=== PATIENT | male | born 1945 | race Caucasian/White ===

== ENCOUNTER 2025-07-16 07:25 | Inpatient (IN) | payer MEDICARE, SELFPAY ==
[2025-07-16] VITALS (22 sets, daily range): BP systolic 100–148; BP diastolic 53–86; PULSE 89–113; RESP 8–34; TEMP 36.3–36.9; O2SAT 94–100; BMI 39.4
--- NOTE | ~2025-07-16 | US_ITS ---
US abdomen limited Indication: Rule out cirrhosis Comparison: None Technique: Pandey-scale and color Doppler images were obtained. Findings: LIVER: Moderate increased echogenicity of the liver. The liver contours are nodular. . The liver measures 16 cm.Small amount of ascites. GALLBLADDER/BILIARY: There is cholelithiasis with minimal gallbladder wall thickening probably reactive due to the surrounding fluid. CBD 4.8 mm. [place] sign negative. PANCREAS: Unremarkable. Right Kidney: Right kidney was not imaged. Impression: 1. Cirrhotic disease of the liver with small amount of ascites. 2. Cholelithiasis. Reviewed, dictated and finalized at location P. [facility] Impression: 1. Cirrhotic disease of the liver with small amount of ascites. 2. Cholelithiasis.
--- NOTE | 2025-07-16 07:38 | ED.NAVMDI ---
HPI - Nausea/Vomiting/Diarrhea General Chief complaint: Nausea/Vomiting/Diarrhea Stated complaint: vomiting Time Seen by Provider: 07/16/25 07:31 History of Present Illness HPI Narrative: Pt had chicken for dinner last night and vomited when he got home. Pt says emesis was brown. Pt had upper and lower GI scope recently which was fine. Pt has hx of hemochromatosis and htn. Pt not vomiting now and has no pain. Related Data Home Medications ?Medication ?Instructions ?Recorded ?Confirmed ?Last Taken ?Type allopurinol 300 mg tablet 300 mg PO DAILY 07/16/25 07/16/25 07/16/25 History betamethasone dipropionate 0.05 % 1 applic topical Q12H 07/16/25 07/16/25 07/15/25 History topical cream fluticasone fur. 200 mcg-umeclid inhalation 07/16/25 07/15/25 History 62.5 mcg-vilant 25 mcg inhalat.powder (Trelegy Ellipta) fosinopril 20 mg tablet 20 mg PO DAILY 07/16/25 07/16/25 07/16/25 History Allergies Allergy/AdvReac Type Severity Reaction Status Date / Time No Known Allergies Allergy Unknown Verified 07/16/25 14:39 Review of Systems Review of Systems: All systems reviewed & are unremarkable except as noted in HPI and below PMFSH Family History Family History (Updated 07/16/25 @ 14:43 by Joana Anderson RN) Mother Unknown family medical history Cancer Sibling Pancreatic cancer Social History Social History Smoking packs per day: 1 Smoking cigarettes per day: 20.0 Years smoked: 70 Smoking pack-years: 70.00 Smoking status: Current every day smoker Tobacco type: cigarettes Alcohol intake: never Substance use: never Lack of Transportation: No Lack of Food: Never True Current Housing: I Have Housing Concerned About Future Housing: No Difficulty Paying Gas/Electric Bills: No Difficulty Paying for Meds: No Currently Unemployed: No Education: High School Diploma/GED Difficulty w/ Childcare or Family Care: No Spiritual care concerns: No Exam Const: General: healthy appearing and no acute distress Nutritional Appearance: well nourished Orientation/consciousness: patient oriented x3 Limitations: no limitations Neck: Neck: normal visual inspection Chest: Chest palpation & inspection: normal inspection of the chest Resp: Effort & Inspection: normal respiratory effort Auscultation: clear to auscultation bilaterally Cardio: Rate: regular rate Rhythm: regular rhythm GI: GI Palp: Yes Soft to palpation and No Tenderness to palpation present (GI) Auscultation: normal bowel sounds Rectal Exam: heme positive stool Skin: General skin exam: normal color Rashes: no rashes Wounds: no wounds Neuro: General: patient oriented x3, moves all extremities, no meningeal signs, no focal motor deficits and CN's II-XI intact bilaterally Cranial nerves: Yes Nystagmus not present Extrem: General: normal to inspection and no clubbing, cyanosis or edema Psych: Mental Status: mental status grossly normal Affect: normal affect Attitude: cooperative Course Vital Signs Vital signs: Vital Signs Temperature 97.6 F 07/16/25 07:31 Pulse Rate 105 H 07/16/25 07:31 Respiratory Rate 20 07/16/25 07:31 Blood Pressure 148/69 H 07/16/25 07:31 Pulse Oximetry 100 07/16/25 07:31 Oxygen Delivery Room Air 07/16/25 07:31 Temperature 97.4 F L 07/16/25 14:40 Pulse Rate 95 07/16/25 16:00 Respiratory Rate 14 07/16/25 14:40 Blood Pressure 142/69 H 07/16/25 14:40 Pulse Oximetry 100 07/16/25 14:40 Oxygen Delivery Room Air 07/16/25 07:31 MDM - Nausea/Vomiting/Diarrhea MDM Narrative Medical decision making narrative: Pt heme positive with black stool on rectal. Discussed with Dr Smith and will consult, asked to give protonix. Pt not on thinners.discussed with Dr Sanches and agrees to admit. Differential Diagnosis Differential diagnosis: Likely food poisoning, gastroenteritis, drug-induced nausea and vomiting, dehydration and other (gi bleed) Lab Data Attestation: I reviewed the patient's lab results. 07/16/25 18:12 07/16/25 07:43 Labs: Lab Results 07/16/25 07/16/25 Range/Units 07:43 10:06 WBC 10.0 (4.5-10.0) K/mm3 RBC 3.56 L (4.6-6.20) M/mm3 Hgb 9.6 L (14.0-18.0) g/dL Hct 32.7 L (42.0-52.0) % MCV 91.9 (80-100) fl MCH 27.0 (26-34) pg MCHC 29.4 L (32-36) g/dl RDW 18.2 H (11.5-14.5) % Plt Count 133 L (150-375) k/mm3 MPV 11.9 H (7.4-10.4) fl Immature Gran % (Auto) 0.9 H (0-0.5) % Neut % (Auto) 77.2 H (45.5-73.1) % Lymph % (Auto) 13.4 L (18.3-44.2) % [place] % (Auto) 6.3 (2.6-8.5) % Eos % (Auto) 1.2 (0-4.4) % Baso % (Auto) 1.0 (0.2-1.2) % Lymph # (Auto) 1.34 (0.9-3.2) K/mm3 [place] # (Auto) 0.6 (0.1-0.6) K/mm3 Eos # (Auto) 0.1 (0-0.3) K/mm3 Baso # (Auto) 0.1 (0.0-0.1) K/mm3 Abs Immat Gran (auto) 0.09 H (0.00-0.031) K/mm3 Absolute Neuts (auto) 7.7 H (1.3-6.7) K/mm3 Absolute Nucleated RBC 0.000 (0.0-0.012) K/mm3 Band Neutrophils % Not Reportable Nucleated RBC % 0.0 (0.0-0.2) % Platelet Estimate Slightly decreased (Adequate) Large Platelets Present Hypochromasia 1+ Anisocytosis Occasional Ovalocytes 1+ Schistocytes 1+ Sodium 136 L (137-145) mmol/L Potassium 5.0 (3.4-5.0) mmol/L Chloride 106 (98-107) mmol/L Carbon Dioxide 23 (22-30) mmol/L Anion Gap 7 (4-12) mmol/L BUN 42 H (9-20) mg/dL Creatinine 0.98 (0.7-1.3) mg/dL Estim Creat Clear Calc 70 ml/min Estimated GFR > 60 (59 - ) Glucose 139 H (65-110) mg/dL Calcium 8.6 (8.4-10.2) mg/dL Total Bilirubin 0.9 (0.2-1.3) mg/dL AST 44 (17-59) U/L ALT 30 (6-50) U/L Alkaline Phosphatase 146 H (38-126) U/L Total Protein 6.1 L (6.3-8.2) g/dL Albumin 3.1 L (3.5-5.1) g/dL Lipase 52 (23-300) U/L Urine Color Yellow (Yellow) Urine Appearance Clear (Clear) Urine pH 6.5 (5.0-9.0) Ur Specific [place] 1.026 (1.001-1.035) Urine Protein Negative (Negative) mg/dL Urine Glucose (UA) Negative (Negative) mg/dL Urine Ketones Trace H (Negative) mg/dL Ur Blood (Man) Negative (Negative) Urine Nitrate Negative (Negative) Urine Bilirubin Negative (Negative) Urine Urobilinogen 1.0 (<2.0) mg/dL Leukocyte Esterase Rfl Trace H (Negative) ZUNILDA/UL Urine RBC 0-2 (0-2) /hpf Urine WBC 0-5 (0-3) /hpf Ur Squamous Epith Cells None seen (Few) /hpf Urine Bacteria None seen /hpf Urine Casts 0-2 Discharge Plan Discharge Clinical Impression: GI bleed Patient Disposition: Still a Patient Condition: Stable
--- NOTE | 2025-07-16 07:42 | ECG_ITS ---
Test Date: 2025-07-16 07:47:50 Measurements Intervals [place] Rate: 101 P: 20 MD: 181 QRS: -72 QRSD: 82 T: 32 QT: 330 QTc: 428 Interpretive Statements SINUS TACHYCARDIA WITH OCCASIONAL SUPRAVENTRICULAR PREMATURE COMPLEXES POOR R-WAVE PROGRESSION CONSIDER PREVIOUS INFERIOR MS ABNORMAL ECG No previous ECG available for comparison Electronically Signed On 07-16-2025 07:50:30 [employer] by Kehinde Abbott M.D.
[2025-07-16 08:04] LABS: Hematocrit 32.7 % (42.0-52.0); Hemoglobin 9.6 g/dL (14.0-18.0); Immature Granulocyte Percent A 0.9 % (0-0.5); Lymphocytes Absolute Auto 1.34 K/mm3 (0.9-3.2); Mean Corpuscular HGB Conc 29.4 g/dl (32-36); Mean Corpuscular Hemoglobin 27.0 pg (26-34); Mean Corpuscular Volume 91.9 fl (80-100); Nucleated Red Blood Cells Absolute Auto 0.000 K/mm3 (0.0-0.012); Nucleated Red Blood Cells Perc 0.0 % (0.0-0.2); Platelet Count Result 133 k/mm3 (150-375); Red Blood Count 3.56 M/mm3 (4.6-6.20); White Blood Count 10.0 K/mm3 (4.5-10.0)
[2025-07-16] MEDS: ONDANSETRON INJ 4 MG/2 ML VIAL IV PUSH (08:18)
[2025-07-16] MEDS: SODIUM CHLORIDE 0.9% IV 500 ML 999 ML IV CONT (08:18)
[2025-07-16 08:23] LABS: Alanine Aminotransferase 30 U/L (6-50); Albumin Level 3.1 g/dL (3.5-5.1); Alkaline Phosphatase 146 U/L (38-126); Anion Gap 7 mmol/L (4-12); Aspartate Amino Transferase 44 U/L (17-59); Bilirubin,Total 0.9 mg/dL (0.2-1.3); Blood Urea Nitrogen 42 mg/dL (9-20); Calcium 8.6 mg/dL (8.4-10.2); Carbon Dioxide 23 mmol/L (22-30); Chloride 106 mmol/L (98-107); Estimated CRCL calculation 70 ml/min; Estimated Glomerular Filt Rate > 60; Glucose 139 mg/dL (65-110); Lipase 52 U/L (23-300); Potassium 5.0 mmol/L (3.4-5.0); Sodium 136 mmol/L (137-145); Total Protein 6.1 g/dL (6.3-8.2)
[2025-07-16 08:34] LABS: Anisocytosis Occasional; Hypochromasia 1+; Ovalocytes 1+; Schistocytes 1+
--- OUTSIDE RECORDS SUMMARY | 2025-07-16 09:04 | XMS_ITS | Patient Health Record ---
Author Organization UpTo Address [address] [facility] [place]. [address] [place] [id number] Care Team Providers Care Silver Buffer Name Role Phone Stu Rdz DO Primary Care Provider Ulises walker Reason For Referral No Information Plan Of Treatment No Information Insurance Providers Payer Name Payer Address Payer Phone Subscriber Number Group Number Insured Name Patient Relationship to Insured Coverage Start Date Coverage End Date Medicare E2 [address] [address] [place] [address] [phone] [id number] Miguel Jones Self - patient is the insured [facility] Choice Plus E2 [address] [address] [place] [address] [id number] Miguel Jones Spouse - patient is the spouse of the insured
[2025-07-16 10:21] LABS: Add Urine Microscopic? YES; Appearance Urine Clear (Clear); Glucose Urine UA Negative (Negative); Leukocyte Esterase Ur Trace LEU/UL (Negative); Nitrate Urine Negative (Negative); Non Pathogenic Casts 0-2; Specific Grav Ur 1.026 (1.001-1.035)
[2025-07-16] MEDS: PANTOPRAZOLE SODIUM IV 40 MG VIAL IV PUSH ×2 (10:48→19:52)
--- NOTE | 2025-07-16 11:18 | PC.NURSE ---
pt placed in recliner at this time for comfort
--- NOTE | 2025-07-16 13:16 | WPCEDHO ---
ED Hand Off Checklist All vitals saved: YES IV Site documented: YES All med administrations documented: YES Triage Note Triage Note pt ambulatory to ED for c/o N/V 07/16/25 07:31 that started last night. pt says when he vomits it looks brown. pt c/o feeling weak. pt denies feeling pain anywhere. Allergies No Known Allergies Allergy (Unknown, Verified 07/16/25 07:26) Administered/Completed Medications Discontinued Medications Sodium Chloride (Normal Saline Iv) 500 mls @ 999 mls/hr IV CONT .Q31M STA Stop: 07/16/25 08:42 Last Infusion: 07/16/25 08:49 Dose: Infused Documented By: Admin: 07/16/25 08:18 Dose: 999 mls/hr Documented By: RAIN Ondansetron HCl (Ondansetron Inj 4 Mg/2 Ml Vial) 4 mg IV PUSH ONCE STA Stop: 07/16/25 08:13 Last Admin: 07/16/25 08:18 Dose: 4 mg Documented By: RAIN Pantoprazole Sodium (Pantoprazole Sodium Iv 40 Mg Vial) 40 mg IV PUSH ONCE STA Stop: 07/16/25 10:26 Last Admin: 07/16/25 10:48 Dose: 40 mg Documented By: REYNALDO Duenas 07/16/25 11:18 Nurse Note by Zeinab Sales pt placed in recliner at this time for comfort Initialized on 07/16/25 11:18 - END OF NOTE Interventions/Assessments IV / Saline Lock, Insert Start: 07/16/25 07:30 Freq: STAT Status: Active Protocol: Document 07/16/25 07:42 KNW (Rec: 07/16/25 07:42 KNW [id number]) IV Assessment Peripheral Access Right Wrist IV Catheter Access Initiated IV Insertion Date 07/16/25 IV Insertion Time 07:42 Catheter Gauge 18 IV Insertion 1 Attempts Ultrasound Used for No Placement IV Site Assessment WNL IV Care and WNL Maintenance PA: Gastrointestinal Assessment Start: 07/16/25 07:25 Freq: Status: Active Protocol: Document 07/16/25 07:50 KNW (Rec: 07/16/25 07:51 KNW [id number]) GI Assessment Gastrointestinal Nausea,Vomiting Symptoms Description Soft,Non-Tender,Round All Quadrants Bowel Sounds Active Nausea/Vomiting Assessment Nausea Frequency Intermittent Emesis Frequency Intermittent Emesis Description Brown Last Vital Signs Temperature 97.6 F 07/16/25 07:31 Pulse Rate 101 H 07/16/25 13:01 Respiratory Rate 18 07/16/25 13:01 Pulse Oximetry 97 07/16/25 13:01 Blood Pressure 102/63 07/16/25 12:46 Blood Pressure Mean 74 07/16/25 12:46 Blood Pressure Position Sitting 07/16/25 07:31 Oxygen Delivery Room Air 07/16/25 07:31 Weight 123 kg 07/16/25 07:31 Last Result - Abnormals Only RBC 3.56 M/mm3 (4.6-6.20) L 07/16/25 07:43 Hgb 9.6 g/dL (14.0-18.0) L 07/16/25 07:43 Hct 32.7 % (42.0-52.0) L 07/16/25 07:43 MCHC 29.4 g/dl (32-36) L 07/16/25 07:43 RDW 18.2 % (11.5-14.5) H 07/16/25 07:43 Plt Count 133 k/mm3 (150-375) L 07/16/25 07:43 MPV 11.9 fl (7.4-10.4) H 07/16/25 07:43 Immature Gran % (Auto) 0.9 % (0-0.5) H 07/16/25 07:43 Neut % (Auto) 77.2 % (45.5-73.1) H 07/16/25 07:43 Lymph % (Auto) 13.4 % (18.3-44.2) L 07/16/25 07:43 Abs Immat Gran (auto) 0.09 K/mm3 (0.00-0.031) H 07/16/25 07:43 Absolute Neuts (auto) 7.7 K/mm3 (1.3-6.7) H 07/16/25 07:43 Sodium 136 mmol/L (137-145) L 07/16/25 07:43 BUN 42 mg/dL (9-20) H 07/16/25 07:43 Glucose 139 mg/dL (65-110) H 07/16/25 07:43 Alkaline Phosphatase 146 U/L (38-126) H 07/16/25 07:43 Total Protein 6.1 g/dL (6.3-8.2) L 07/16/25 07:43 Albumin 3.1 g/dL (3.5-5.1) L 07/16/25 07:43 Urine Ketones Trace mg/dL (Negative) H 07/16/25 10:06 Leukocyte Esterase Rfl Trace ZUNILDA/UL (Negative) H 07/16/25 10:06 Most Recent Suicide Severity Rating Suicide Severity Rating NO RISK INDICATED 07/16/25 07:31
[2025-07-16 13:36] LABS: Hematocrit 30.7 % (42.0-52.0); Hemoglobin 9.1 g/dL (14.0-18.0)
--- NOTE | 2025-07-16 14:29 | ADMGEN ---
This patient, Miguel Jones, was admitted to 3 Med Surg Room 321-01. Patient/family oriented to hospital policies and general routines including ID bracelet, bed and alarms, visiting hours, pain management, procedures, bathroom and other care routines, personal items, smoking policy, room service/diet, and visiting hours. Information on how to activate the Rapid Response Team has been discussed. Patient/Family are encouraged to report perceived risks to care and to ask questions if they do not understand what they are told or what they should do.
--- NOTE | 2025-07-16 16:10 | P.HP_ITS ---
H&P: HPI History of Present Illness Date/Time: 07/16/25 16:10 Chief Complaint: Hematemesis Narrative: Patient is a 80-year-old male with a past medical history of hemochromatosis and COPD who presented to the ED due to episodes of hematemesis. Patient has a history of hemochromatosis and follows up with the oncologist at [facility]. Patient undergoes a therapeutic phlebotomy, but his last blood removal was probably around 1 year ago. Patient follows up with events director/oncologist and GI and PCP, usually in April, before going on the fishing trip in May and June. During his last visit with the oncologist, the patient underwent an ultrasound of the liver and was told everything looked fine. Patient also saw Dr. [facility], reports undergoing endoscopy and colonoscopy with no significant findings other than polyps. When questioned about polyps, he reported having polyps in his throat, and, when qs in more detail about the polyps, whether the polyps were in the throat, esophagus, or intestine, he reported having polyps in the esophagus. The patient has never seen an ENT or requested by GI to see one. Unable to verify whether its polyps or esophageal varices? Yesterday, the patient attended his granddaughter's game and returned home feeling unwell. Around 2:00 a.m., the patient threw up blood clots like material and went to bed again, but eventually he again threw up around 5:00 a.m., brown material. Lately, the patient has dark bowel movements as well. Patient is currently started on pantoprazole 40 mg IV b.i.d. and has been consulted by Gastroenterology. Patient is a chronic smoker and social drinker. Denies daily alcohol consumption. Review of Systems Review of Systems: All systems reviewed & are unremarkable except as noted in HPI and below [facility] Family History Family History (Updated 07/16/25 @ 14:43 by Joana Anderson RN) Mother Unknown family medical history Cancer Sibling Pancreatic cancer Social History Social History Smoking packs per day: 1 Smoking cigarettes per day: 20.0 Years smoked: 70 Smoking pack-years: 70.00 Smoking status: Current every day smoker Tobacco type: cigarettes Alcohol intake: never Substance use: never Lack of Transportation: No Lack of Food: Never True Current Housing: I Have Housing Concerned About Future Housing: No Difficulty Paying Gas/Electric Bills: No Difficulty Paying for Meds: No Currently Unemployed: No Education: High School Diploma/GED Difficulty w/ Childcare or Family Care: No Spiritual care concerns: No Meds Home Medications and Allergies Home Medications ?Medication ?Instructions ?Recorded ?Confirmed ?Type allopurinol 300 mg tablet 300 mg PO DAILY 07/16/25 History betamethasone dipropionate 0.05 % 1 applic topical Q12 H 07/16/25 07/16/25 History topical cream fluticasone fur. 200 mcg-umeclid inhalation 07/16/25 History 62.5 mcg-vilant 25 mcg inhalat.powder (Trelegy Ellipta) fosinopril 20 mg tablet 20 mg PO DAILY 07/16/2506/28 History Allergies Allergy/AdvReac Type Severity Reaction Status Date / Time No Known Allergies Allergy Unknown Verified 07/16/25 14:39 Vital Signs Vital Signs - 24 hr 07/16/25 07:31 07/16/25 07:46 07/16/25 08:01 Temperature 97.6 F Pulse Rate 105 H 98 97 Respiratory Rate 20 18 17 Blood Pressure 148/69 H 125/62 107/71 Pulse Oximetry 100 99 99 Oxygen Delivery Room Air 07/16/25 08:16 07/16/25 10:45 07/16/25 11:00 Temperature Pulse Rate 106 H 112 H 107 H Respiratory Rate 22 H 34 H 20 Blood Pressure 117/56 L Pulse Oximetry 99 Oxygen Delivery 07/16/25 11:04 07/16/25 11:18 07/16/25 11:30 Temperature Pulse Rate 110 H 105 H 113 H Respiratory Rate 25 H 8 L 19 Blood Pressure 104/86 Pulse Oximetry 99 99 Oxygen Delivery 07/16/25 11:31 07/16/25 11:45 07/16/25 11:46 Temperature Pulse Rate 100 103 H 102 H Respiratory Rate 19 19 16 Blood Pressure 121/62 103/53 L Pulse Oximetry 99 99 98 Oxygen Delivery 07/16/25 12:00 07/16/25 12:01 07/16/25 12:35 Temperature Pulse Rate 105 H 103 H 109 H Respiratory Rate 20 19 22 H Blood Pressure 100/58 L Pulse Oximetry Oxygen Delivery 07/16/25 12:45 07/16/25 12:46 07/16/25 13:01 Temperature Pulse Rate 105 H 101 H 101 H Respiratory Rate 19 20 18 Blood Pressure 102/63 Pulse Oximetry 98 97 97 Oxygen Delivery 07/16/25 14:40 Temperature 97.4 F L Pulse Rate 101 H Respiratory Rate 14 Blood Pressure 142/69 H Pulse Oximetry 100 Oxygen Delivery Exam Const: General: healthy appearing, no acute distress and well nourished Nutritional Appearance: well nourished Orientation/consciousness: patient oriented x3 Limitations: no limitations Neck: Neck: normal visual inspection and no meningeal signs Chest: Chest palpation & inspection: normal inspection of the chest Resp: Effort & Inspection: normal respiratory effort Auscultation: clear to auscultation bilaterally Cardio: Rate: regular rate Rhythm: regular rhythm GI: Auscultation: normal bowel sounds Rectal Exam: heme positive stool Skin: General skin exam: normal color Rashes: no rashes Wounds: no wounds Neuro: General: patient oriented x3, moves all extremities, no meningeal signs, no focal motor deficits and CN's II-XI intact bilaterally Cranial nerves: Yes Nystagmus not present Extrem: General: normal to inspection and no clubbing, cyanosis or edema Psych: Mental Status: mental status grossly normal Affect: normal affect Attitude: cooperative H&P: Results Labs Labs: Short CBC 07/16/25 07/16/25 Range/Units 07:43 13:29 WBC 10.0 (4.5-10.0) K/mm3 Hgb 9.6 L 9.1 L (14.0-18.0) g/dL Hct 32.7 L 30.7 L (42.0-52.0) % Plt Count 133 L (150-375) k/mm3 BMP 07/16/25 07:43 Sodium 136 L Potassium 5.0 Chloride 106 Carbon Dioxide 23 BUN 42 H Creatinine 0.98 Glucose 139 H Calcium 8.6 Liver Function 07/16/25 Range/Units 07:43 Total Bilirubin 0.9 (0.2-1.3) mg/dL AST 44 (17-59) U/L ALT 30 (6-50) U/L Alkaline Phosphatase 146 H (38-126) U/L Albumin 3.1 L (3.5-5.1) g/dL Urine 07/16/25 Range/Units 10:06 Urine Color Yellow (Yellow) Urine Appearance Clear (Clear) Urine pH 6.5 (5.0-9.0) Ur Specific [place] 1.026 (1.001-1.035) Urine Protein Negative (Negative) mg/dL Urine Glucose (UA) Negative (Negative) mg/dL Assessment and Plan Assessment and plan (1) GI bleed: Code(s): K92.2 - Gastrointestinal hemorrhage, unspecified Status: Acute Assessment and Plan: Hematemesis As per patient recent endoscopy and colonoscopy Reports polyps in esophagus (esophageal varices?) Possible esophageal varices from chronic liver disease (hemochromatosis) 2 episodes of hematemesis Monitor H&H Monitor INR and platelets Protonix IV b.i.d. Prophylactic ceftriaxone 1 g Octreotide bolus follows with drip GI on board Transfuse if hemoglobin less than 7 (2) Hemochromatosis: Code(s): E83.119 - Hemochromatosis, unspecified Status: Acute Assessment and Plan: S/P Therapeutic phlebotomy Follows up with the Hematology/Oncology at [facility] Ultrasound liver to rule out cirrhosis (3) COPD (chronic obstructive pulmonary disease): Code(s): J44.9 - Chronic obstructive pulmonary disease, unspecified Status: Acute Assessment and Plan: Chronic smoker Continue home medication Plan Code full code DVT prophylaxis: SCD Hospitalist [facility] Advance Care Plan I have confirmed that the patient's Advanced Care Plan is present, code status i s documented, or surrogate decision maker is listed in patient medical record.: Yes Medication Reconciliation I have utilized all available resources to obtain, update and review the patients current medications (includes all prescriptions, OTC, herbals, cannabis, and nutritional supplements).: Yes
[2025-07-16] MEDS: OCTREOTIDE ACETATE 50 MCG/ML VIAL IV PUSH (17:16)
[2025-07-16] MEDS: cefTRIAXone 1 GM in SODIUM CHLORIDE 0.9% IV 50 ML 100 ML IVPB (17:27)
[2025-07-16] MEDS: OCTREOTIDE ACETATE 500 MCG in SODIUM CHLORIDE 0.9% IV 99 ML 10 MCG IV CONT (17:39)
[2025-07-16 18:31] LABS: Hematocrit 28.7 % (42.0-52.0); Hemoglobin 8.5 g/dL (14.0-18.0)
[2025-07-16 18:46] LABS: INR 1.2; Prothrombin Time 15.4 Seconds (11.1-14.7)
--- NOTE | 2025-07-16 20:29 | P.CONGI_ITS ---
Assessment and Plan Assessment and plan (1) Cirrhosis: Code(s): K74.60 - Unspecified cirrhosis of liver Status: Acute Assessment and Plan: Patient with new onset upper GI bleeding, likely variceal although differential diagnosis should include peptic ulcer disease, erosive gastritis, Thu Gonzalez tear or erosive esophagitis. Will start treatment with Octreotide infusion, Prophylaxis with ceftriaxone and IV Pantoprazole. Will perform EGD tomorrow and if varices are present will perform endoscopic variceal ligation, and will discontinue Pantoprazole. 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 He is followed at [facility], where he undergoes biannual ultrasounds and regular checkups. He presented for the first time yesterday after two episodes of christine hematemesis, associated with mild weakness and instability. He was found to be hemodynamically stable upon arrival to the Emergency Room. His history is notable for recent EGD demonstrating esophageal varices, though banding was only discussed and never performed. Admission Labs: Hb 9.6, Hct 32.7, Plt 133, INR 1.2, Na 136, Creatinine 0.98, BUN 42, AST 44, ALT 30, Albumin 3.1. His MELD 3.0 score is 20. Review of Systems 2 Review of Systems: All systems reviewed & are unremarkable except as noted in HPI and below PMFSH Family History Family History (Updated 07/16/25 @ 14:43 by Joana Anderson RN) Mother Unknown family medical history Cancer Sibling Pancreatic cancer Social History Social History Smoking packs per day: 1 Smoking cigarettes per day: 20.0 Years smoked: 70 Smoking pack-years: 70.00 Smoking status: Current every day smoker Tobacco type: cigarettes Alcohol intake: never Substance use: never Lack of Transportation: No Lack of Food: Never True Current Housing: I Have Housing Concerned About Future Housing: No Difficulty Paying Gas/Electric Bills: No Difficulty Paying for Meds: No Currently Unemployed: No Education: High School Diploma/GED Difficulty w/ Childcare or Family Care: No Spiritual care concerns: No Meds Home Medications and Allergies Home Medications ?Medication ?Instructions ?Recorded ?Confirmed ?Type allopurinol 300 mg tablet 300 mg PO DAILY 07/16/25 History betamethasone dipropionate 0.05 % 1 applic topical Q12 H 07/16/25 07/16/25 History topical cream fluticasone fur. 200 mcg-umeclid inhalation 07/16/25 History 62.5 mcg-vilant 25 mcg inhalat.powder (Trelegy Ellipta) fosinopril 20 mg tablet 20 mg PO DAILY 07/16/2506/28 History Allergies Allergy/AdvReac Type Severity Reaction Status Date / Time No Known Allergies Allergy Unknown Verified 07/16/25 14:39 Vital Signs Vital Signs - 24 hr 07/16/25 07:31 07/16/25 07:46 07/16/25 08:01 Temperature 97.6 F Pulse Rate 105 H 98 97 Respiratory Rate 20 18 17 Blood Pressure 148/69 H 125/62 107/71 Pulse Oximetry 100 99 99 Oxygen Delivery Room Air 07/16/25 08:16 07/16/25 10:45 07/16/25 11:00 Temperature Pulse Rate 106 H 112 H 107 H Respiratory Rate 22 H 34 H 20 Blood Pressure 117/56 L Pulse Oximetry 99 Oxygen Delivery 07/16/25 11:04 07/16/25 11:18 07/16/25 11:30 Temperature Pulse Rate 110 H 105 H 113 H Respiratory Rate 25 H 8 L 19 Blood Pressure 104/86 Pulse Oximetry 99 99 Oxygen Delivery 07/16/25 11:31 07/16/25 11:45 07/16/25 11:46 Temperature Pulse Rate 100 103 H 102 H Respiratory Rate 19 19 16 Blood Pressure 121/62 103/53 L Pulse Oximetry 99 99 98 Oxygen Delivery 07/16/25 12:00 07/16/25 12:01 07/16/25 12:35 Temperature Pulse Rate 105 H 103 H 109 H Respiratory Rate 20 19 22 H Blood Pressure 100/58 L Pulse Oximetry Oxygen Delivery 07/16/25 12:45 07/16/25 12:46 07/16/25 13:01 Temperature Pulse Rate 105 H 101 H 101 H Respiratory Rate 19 20 18 Blood Pressure 102/63 Pulse Oximetry 98 97 97 Oxygen Delivery 07/16/25 14:40 07/16/25 16:00 Temperature 97.4 F L Pulse Rate 101 H 95 Respiratory Rate 14 Blood Pressure 142/69 H Pulse Oximetry 100 Oxygen Delivery Exam 2 Const: General: healthy appearing and no acute distress Nutritional Appearance: well nourished Orientation/consciousness: patient oriented x3 Limitations: no limitations Neck: Neck: normal visual inspection Chest: Chest palpation & inspection: normal inspection of the chest Resp: Effort & Inspection: normal respiratory effort Auscultation: clear to auscultation bilaterally Cardio: Rate: regular rate Rhythm: regular rhythm GI: GI Palp: Yes Soft to palpation and No Tenderness to palpation present (GI) Auscultation: normal bowel sounds Rectal Exam: heme positive stool Skin: General skin exam: normal color Rashes: no rashes Wounds: no wounds Neuro: General: patient oriented x3, moves all extremities, no meningeal signs, no focal motor deficits and CN's II-XI intact bilaterally Cranial nerves: Yes Nystagmus not present Extrem: General: normal to inspection and no clubbing, cyanosis or edema Psych: Mental Status: mental status grossly normal Affect: normal affect Attitude: cooperative Results Labs 07/16/25 18:12 07/16/25 07:43 Labs: Short CBC 07/16/25 07/16/25 07/16/25 Range/Units 07:43 13:29 18:12 WBC 10.0 (4.5-10.0) K/mm3 Hgb 9.6 L 9.1 L 8.5 L (14.0-18.0) g/dL Hct 32.7 L 30.7 L 28.7 L (42.0-52.0) % Plt Count 133 L (150-375) k/mm3 BMP 07/16/25 07:43 Sodium 136 L Potassium 5.0 Chloride 106 Carbon Dioxide 23 BUN 42 H Creatinine 0.98 Glucose 139 H Calcium 8.6 Liver Function 07/16/25 Range/Units 07:43 Total Bilirubin 0.9 (0.2-1.3) mg/dL AST 44 (17-59) U/L ALT 30 (6-50) U/L Alkaline Phosphatase 146 H (38-126) U/L Albumin 3.1 L (3.5-5.1) g/dL Urine 07/16/25 Range/Units 10:06 Urine Color Yellow (Yellow) Urine Appearance Clear (Clear) Urine pH 6.5 (5.0-9.0) Ur Specific [place] 1.026 (1.001-1.035) Urine Protein Negative (Negative) mg/dL Urine Glucose (UA) Negative (Negative) mg/dL
[2025-07-17] VITALS (12 sets, daily range): BP systolic 101–134; BP diastolic 44–72; PULSE 65–109; RESP 16–23; TEMP 36.4–36.8; O2SAT 96–100
[2025-07-17 00:40] LABS: Hematocrit 29.1 % (42.0-52.0); Hemoglobin 8.8 g/dL (14.0-18.0)
[2025-07-17] MEDS: OCTREOTIDE ACETATE 500 MCG in SODIUM CHLORIDE 0.9% IV 99 ML 10 MCG IV CONT ×3 (03:32→18:00)
[2025-07-17 06:21] LABS: Hematocrit 25.6 % (42.0-52.0); Hemoglobin 7.7 g/dL (14.0-18.0)
[2025-07-17 07:44] LABS: Mean Corpuscular HGB Conc 30.0 g/dl (32-36); Mean Corpuscular Hemoglobin 27.5 pg (26-34); Mean Corpuscular Volume 91.8 fl (80-100); Platelet Count Result 118 k/mm3 (150-375); Red Blood Count 2.80 M/mm3 (4.6-6.20); White Blood Count 7.9 K/mm3 (4.5-10.0)
[2025-07-17 08:19] LABS: Alanine Aminotransferase 27 U/L (6-50); Albumin Level 2.7 g/dL (3.5-5.1); Alkaline Phosphatase 130 U/L (38-126); Anion Gap 3 mmol/L (4-12); Aspartate Amino Transferase 37 U/L (17-59); Bilirubin,Total 0.8 mg/dL (0.2-1.3); Blood Urea Nitrogen 44 mg/dL (9-20); Calcium 8.1 mg/dL (8.4-10.2); Carbon Dioxide 24 mmol/L (22-30); Chloride 109 mmol/L (98-107); Estimated CRCL calculation 66 ml/min; Estimated Glomerular Filt Rate > 60; Glucose 141 mg/dL (65-110); Potassium 4.8 mmol/L (3.4-5.0); Sodium 136 mmol/L (137-145); Total Protein 5.5 g/dL (6.3-8.2)
[2025-07-17 08:39] LABS: Immature Reticulocyte Fraction 34.2 % (3.0-15.9); Reticulocyte Hemoglobin Conten 28.9 pg (28.2-36.6); Reticulocytes Absolute 0.12 10^6/uL (0.02-0.10)
[2025-07-17] MEDS: PANTOPRAZOLE SODIUM IV 40 MG VIAL IV PUSH (08:40)
[2025-07-17] MEDS: SODIUM CHLORIDE 0.9% IV 1,000 ML 75 ML IV CONT (08:44)
[2025-07-17 09:10] LABS: Bilirubin,Total 1.0 mg/dL (0.2-1.3)
[2025-07-17 09:11] LABS: Iron 36 ug/dL (49-181)
[2025-07-17 09:18] LABS: Transferrin 185 mg/dL (206-381)
[2025-07-17 09:24] LABS: Percent Iron Saturation 14 % (20-50)
[2025-07-17 09:46] LABS: Ferritin 21.90 ng/mL (11.1-264)
[2025-07-17 10:16] LABS: Vitamin B12 476.0 pg/mL (239-931)
[2025-07-17] MEDS: LACTATED RINGERS 1,000 ML 150 ML IV CONT (13:29)
--- NOTE | 2025-07-17 14:26 | WPDANESEPPF ---
Anes - Initial Pre Proc Eval Procedure: Operation Date: 07/17/25 14:45 Proposed Procedures p Esophagogastroduodenoscopy - Omar Smith MD Date/Time: 07/17/25 14:26 Surgeon: Thiago Sanches MD Pre Op Diagnosis: GI Bleed Patient Data Age: 80 Gender: M Height: 1.75 m Weight: 121 kg Last Vital Signs Temp 36.4 C 07/17/25 13:27 Pulse 85 07/17/25 13:27 Resp 22 H 07/17/25 13:27 BP 123/57 L 07/17/25 13:27 Pulse Ox 99 07/17/25 13:27 O2 Del Method Room Air 07/17/25 13:27 Allergies Allergy/AdvReac Type Severity Reaction Status Date / Time No Known Allergies Allergy Unknown Verified 07/17/25 13:25 Home Medications ?Medication ?Instructions ?Recorded ?Confirmed ?Type allopurinol 300 mg tablet 300 mg PO DAILY 07/16/25 07/16/25 History betamethasone dipropionate 0.05 % 1 applic topical Q12H 07/16/25 07/16/25 History topical cream fluticasone fur. 200 mcg-umeclid inhalation 07/16/25 History 62.5 mcg-vilant 25 mcg inhalat.powder (Trelegy Ellipta) fosinopril 20 mg tablet 20 mg PO DAILY 07/16/25 07/16/25 History Laboratory Tests 07/16/25 07/17/25 07/17/25 18:12 00:19 05:55 WBC 7.9 K/mm3 (4.5-10.0) RBC 2.80 L M/mm3 (4.6-6.20) Hgb 8.5 L g/dL 8.8 L g/dL 7.7 L g/dL (14.0-18.0) (14.0-18.0) (14.0-18.0) Hct 28.7 L % 29.1 L % 25.6 L % (42.0-52.0) (42.0-52.0) (42.0-52.0) MCV 91.8 fl (80-100) MCH 27.5 pg (26-34) MCHC 30.0 L g/dl (32-36) RDW 18.6 H % (11.5-14.5) Plt Count 118 L k/mm3 (150-375) MPV 12.9 H fl (7.4-10.4) Absolute Retic 0.12 H 10^6/uL (0.02-0.10) Percent Retic 4.42 H % (0.7-4.3) Immature Retic Fraction 34.2 H % (3.0-15.9) Retic Hgb Content 28.9 pg (28.2-36.6) Haptoglobin PT 15.4 H Seconds (11.1-14.7) INR 1.2 Sodium 136 L mmol/L (137-145) Potassium 4.8 mmol/L (3.4-5.0) Chloride 109 H mmol/L (98-107) Carbon Dioxide 24 mmol/L (22-30) Anion Gap 3 L mmol/L (4-12) BUN 44 H mg/dL (9-20) Creatinine 1.03 mg/dL (0.7-1.3) Estim Creat Clear Calc 66 ml/min Estimated GFR > 60 (59 - ) Glucose 141 H mg/dL (65-110) POC Capillary Glucose Calcium 8.1 L mg/dL (8.4-10.2) Iron TIBC % Saturation Transferrin Ferritin Total Bilirubin 0.8 mg/dL (0.2-1.3) Direct Bilirubin AST 37 U/L (17-59) ALT 27 U/L (6-50) Alkaline Phosphatase 130 H U/L (38-126) Lactate Dehydrogenase Total Protein 5.5 L g/dL (6.3-8.2) Albumin 2.7 L g/dL (3.5-5.1) Vitamin B12 Folate 07/17/25 07/17/25 07/17/25 08:39 08:40 11:41 WBC RBC Hgb Hct MCV MCH MCHC RDW Plt Count MPV Absolute Retic Percent Retic Immature Retic Fraction Retic Hgb Content Haptoglobin Pending PT INR Sodium Potassium Chloride Carbon Dioxide Anion Gap BUN Creatinine Estim Creat Clear Calc Estimated GFR Glucose POC Capillary Glucose 137 H mg/dl (65-105) Calcium Iron 36 L ug/dL (49-181) TIBC 262 L ug/dL (265-497) % Saturation 14 L % (20-50) Transferrin 185 L mg/dL (206-381) Ferritin 21.90 ng/mL (11.1-264) Total Bilirubin 1.0 mg/dL (0.2-1.3) Direct Bilirubin 0.0 mg/dL (0-0.3) AST ALT Alkaline Phosphatase Lactate Dehydrogenase 206 U/L (120-246) Total Protein Albumin Vitamin B12 476.0 pg/mL (239-931) Folate 8.1 ng/mL (2.76->20) Patient hx anesthesia problems: none Family hx anesthesia problems: none Results Review: All pre-operative results and documents have been reviewed as part of the pre-operative evaluation. [facility] Family History Family History Mother Unknown family medical history Cancer Sibling Pancreatic cancer Social History Social History Smoking packs per day: 1 Smoking cigarettes per day: 20.0 Years smoked: 70 Smoking pack-years: 70.00 Smoking status: Current every day smoker Tobacco type: cigarettes Alcohol intake: never Substance use: never Lack of Transportation: No Lack of Food: Never True Current Housing: I Have Housing Concerned About Future Housing: No Difficulty Paying Gas/Electric Bills: No Difficulty Paying for Meds: No Currently Unemployed: No Education: High School Diploma/GED Difficulty w/ Childcare or Family Care: No Spiritual care concerns: No Anes - Eval Final PreProcedure Day of Procedure 07/17/25 14:26 Patient weight: obese Heart: regular rate and rhythm Lungs: wheezes Airway: Mallampati scale class II Neurological: alert and oriented Last oral intake: >/= 8 hours ASA classification: IV Emergent: no Anesthetic plan: proceed Anesthesia type and monitoring: general GIVS and standard monitoring Results Review: All pre-operative results and documents have been reviewed as part of the pre-operative evaluation. Informed Consent: The patient's anesthetic plan and its attendant risks and benefits were discussed with the patient/family/POA. Questions were solicited and answers provided to the satisfaction of the patient/family/POA.
[2025-07-17] MEDS: SIMETHICONE ORAL SUSPENSION 20 MG/0.3 ML 30 ML BOTTLE 0.6 ML PO (14:42)
--- NOTE | 2025-07-17 14:53 | WPDGIPROGNO ---
Progress Note: A&P Assessment and Plan (1) Esophageal varices: Code(s): I85.00 - Esophageal varices without bleeding Status: Acute (2) Portal hypertensive gastropathy: Code(s): K76.6 - Portal hypertension; K31.89 - Other diseases of stomach and duodenum Status: Acute Assessment and Plan: The patient's bleeding was originated in moderate to severe portal gastropathy. Esophageal varices did not have signs of recent bleeding. Variceal ligation was not deemed safe, given the moderate erosive esophagitis which may predispose the patient to post variceal ligation ulcer bleeding. In addition, in the absence of variceal bleeding, ligation might worsen portal hypertensive gastropathy, moreover if that was the cause of bleeding. Therefore, will start non selective beta walker (Carvedilol), continue Octreotide one more day and monitor current hemodynamic status and H/H trend. Plan - Carvedilol 6.25 mg q 12 hours - Pantoprazole 40 mg PO q 24 h - d/c IV Pantoprazole and Ceftriaxone - Continue monitoring vital signs and H/H q 24 hours Subjective Date/time seen: 07/17/25 14:53 Objective Data Vital Signs Vital Signs: Vital Signs - 24 hr 07/16/25 16:00 07/16/25 20:00 07/16/25 20:00 Temperature Pulse Rate 95 89 Respiratory Rate Blood Pressure Pulse Oximetry Oxygen Delivery Room Air 07/16/25 20:05 07/17/25 00:00 07/17/25 04:00 Temperature 98.5 F Pulse Rate 98 109 H 84 Respiratory Rate 18 Blood Pressure 121/59 L Pulse Oximetry 94 Oxygen Delivery 07/17/25 05:48 07/17/25 08:00 07/17/25 08:00 Temperature 98.1 F Pulse Rate 87 91 Respiratory Rate 17 Blood Pressure 101/63 Pulse Oximetry 97 Oxygen Delivery Room Air 07/17/25 12:00 07/17/25 13:27 Temperature 97.6 F Pulse Rate 84 85 Respiratory Rate 22 H Blood Pressure 123/57 L Pulse Oximetry 99 Oxygen Delivery Room Air Intake/Output Intake/Output: Intake & Output 07/14/25 07/15/25 07/16/25 07/17/25 23:59 23:59 23:59 23:59 Intake Total 500 98.8 Output Total 900 Balance 500 -801.2 Meds/Results Medications: Active Medications Generic Name Dose Route Start Last Admin Trade Name Freq PRN Reason Stop Dose Admin Dextrose 12.5 gm 07/17/25 07:01 Dextrose 50% 25 Gm/50 Ml Syringe IV PUSH PRN PRN Hypoglycemia Protocol Glucagon 1 mg 07/17/25 07:01 Glucagon For Inj 1 Mg Vial IM PRN PRN Hypoglycemia Protocol Glucose 15 gm 07/17/25 07:01 Glucose Oral Gel 15 Gm Of Glucse In 37.5 Gm Tube PO PRN PRN Hypoglycemia Protocol Octreotide Acetate 500 mcg/ 100 mls @ 10 mls/hr 07/16/25 17:30 07/17/25 03:32 Sodium Chloride IV CONT 07/17/25 17:29 50 mcg/hr .Q10H JAGDISH 10 mls/hr 50 MCG/HR Administration Ceftriaxone Sodium 1 gm/ 50 mls @ 100 mls/hr 07/16/25 18:00 07/16/25 17:27 Sodium Chloride IVPB 100 mls/hr Q24H JAGDISH Administration Dextrose 1,000 mls @ 100 mls/hr 07/17/25 07:01 Dextrose 5% 1,000 Ml IVPB PRN PRN Hypoglycemia Protocol Sodium Chloride 1,000 mls @ 75 mls/hr 07/17/25 07:05 07/17/25 08:44 Normal Saline Iv IV CONT 75 mls/hr .[id number] JAGDISH Administration Lactated Ringer's 1,000 mls @ 150 mls/hr 07/17/25 13:30 07/17/25 14:48 Lr - Lactated Ringers Iv IV CONT 150 mls/hr .[id number] JAGDISH Infusion Ondansetron HCl 4 mg 07/16/25 16:42 Ondansetron Inj 4 Mg/2 Ml Vial IV PUSH Q4H PRN Nausea And Vomiting Pantoprazole Sodium 40 mg 07/16/25 21:00 07/17/25 08:40 Pantoprazole Sodium Iv 40 Mg Vial IV PUSH 40 mg Q12HR JAGDISH Administration Simethicone 0.6 ml 07/17/25 14:42 07/17/25 14:42 Simethicone Oral Suspension 20 Mg/0.3 Ml 30 Ml Bottle PO 0.6 ml ONCE PRN Administration Gas Discomfort Radiology Results: ITS Impressions Abdomen Ultrasound 07/17/25 08:32 Impression: 1. Cirrhotic disease of the liver with small amount of ascites. 2. Cholelithiasis. Labs Labs: Laboratory Results - last 24 hr 07/16/25 07/17/25 07/17/25 18:12 00:19 05:55 WBC 7.9 RBC 2.80 L Hgb 8.5 L 8.8 L 7.7 L Hct 28.7 L 29.1 L 25.6 L MCV 91.8 MCH 27.5 MCHC 30.0 L RDW 18.6 H Plt Count 118 L MPV 12.9 H Absolute Retic 0.12 H Percent Retic 4.42 H Immature Retic Fraction 34.2 H Retic Hgb Content 28.9 PT 15.4 H INR 1.2 Sodium 136 L Potassium 4.8 Chloride 109 H Carbon Dioxide 24 Anion Gap 3 L BUN 44 H Creatinine 1.03 Estim Creat Clear Calc 66 Estimated GFR > 60 Glucose 141 H POC Capillary Glucose Calcium 8.1 L Iron TIBC % Saturation Transferrin Ferritin Total Bilirubin 0.8 Direct Bilirubin AST 37 ALT 27 Alkaline Phosphatase 130 H Lactate Dehydrogenase Total Protein 5.5 L Albumin 2.7 L Vitamin B12 Folate 07/17/25 07/17/25 07/17/25 08:39 08:40 11:41 WBC RBC Hgb Hct MCV MCH MCHC RDW Plt Count MPV Absolute Retic Percent Retic Immature Retic Fraction Retic Hgb Content PT INR Sodium Potassium Chloride Carbon Dioxide Anion Gap BUN Creatinine Estim Creat Clear Calc Estimated GFR Glucose POC Capillary Glucose 137 H Calcium Iron 36 L TIBC 262 L % Saturation 14 L Transferrin 185 L Ferritin 21.90 Total Bilirubin 1.0 Direct Bilirubin 0.0 AST ALT Alkaline Phosphatase Lactate Dehydrogenase 206 Total Protein Albumin Vitamin B12 476.0 Folate 8.1
--- NOTE | 2025-07-17 16:42 | PM.IMPN ---
Progress Note: A&P Assessment and Plan (1) GI bleed: Code(s): K92.2 - Gastrointestinal hemorrhage, unspecified Status: Acute Assessment and Plan: Hematemesis As per patient recent endoscopy and colonoscopy Reports polyps in esophagus (esophageal varices?) Possible esophageal varices from chronic liver disease (hemochromatosis) 2 episodes of hematemesis Monitor H&H Monitor INR and platelets Protonix IV b.i.d. Prophylactic ceftriaxone 1 g Octreotide bolus follows with drip GI on board Transfuse if hemoglobin less than 7 Underwent EGD Evidence of esophageal varices but no signs of recent bleeding Started on carvedilol Started on clear liquid Discontinue fluid (2) Hemochromatosis: Code(s): E83.119 - Hemochromatosis, unspecified Status: Acute Assessment and Plan: S/P Therapeutic phlebotomy Follows up with the Hematology/Oncology at [facility] Ultrasound liver to rule out cirrhosis (3) COPD (chronic obstructive pulmonary disease): Code(s): J44.9 - Chronic obstructive pulmonary disease, unspecified Status: Acute Assessment and Plan: Chronic smoker Continue home medication Plan Code full code DVT prophylaxis: SCD Subjective Date/time seen: 07/17/25 16:42 Interval history: Underwent EGD. Evidence of esophageal varices but no signs of recent bleeding. Started on carvedilol, continue octreotide 1 more day and monitor H&H Review of Systems Review of Systems: All systems reviewed & are unremarkable except as noted in HPI and below Exam Const: General: healthy appearing, no acute distress and well nourished Nutritional Appearance: well nourished Orientation/consciousness: patient oriented x3 Limitations: no limitations Neck: Neck: normal visual inspection and no meningeal signs Chest: Chest palpation & inspection: normal inspection of the chest Resp: Effort & Inspection: normal respiratory effort Auscultation: clear to auscultation bilaterally Cardio: Rate: regular rate Rhythm: regular rhythm GI: Auscultation: normal bowel sounds Rectal Exam: heme positive stool Skin: General skin exam: normal color Rashes: no rashes Wounds: no wounds Neuro: General: patient oriented x3, moves all extremities, no meningeal signs, no focal motor deficits and CN's II-XI intact bilaterally Cranial nerves: Yes Nystagmus not present Extrem: General: normal to inspection and no clubbing, cyanosis or edema Psych: Mental Status: mental status grossly normal Affect: normal affect Attitude: cooperative Objective Data Vital Signs Vital Signs: Vital Signs - 24 hr 07/16/25 20:00 07/16/25 20:00 07/16/25 20:05 Temperature 98.5 F Pulse Rate 89 98 Respiratory Rate 18 Blood Pressure 121/59 L Pulse Oximetry 94 Oxygen Delivery Room Air 07/17/25 00:00 07/17/25 04:00 07/17/25 05:48 Temperature 98.1 F Pulse Rate 109 H 84 87 Respiratory Rate 17 Blood Pressure 101/63 Pulse Oximetry 97 Oxygen Delivery 07/17/25 08:00 07/17/25 08:00 07/17/25 12:00 Temperature Pulse Rate 91 84 Respiratory Rate Blood Pressure Pulse Oximetry Oxygen Delivery Room Air 07/17/25 13:27 07/17/25 14:50 07/17/25 15:00 Temperature 97.6 F Pulse Rate 85 70 68 Respiratory Rate 22 H 23 H 20 Blood Pressure 123/57 L 128/63 129/68 Pulse Oximetry 99 97 98 Oxygen Delivery Room Air Room Air Room Air 07/17/25 15:12 Temperature Pulse Rate 65 Respiratory Rate 21 H Blood Pressure 134/72 Pulse Oximetry 100 Oxygen Delivery Room Air Intake/Output Intake/Output: Intake & Output 07/14/25 07/15/25 07/16/25 07/17/25 23:59 23:59 23:59 23:59 Intake Total 500 298.8 Output Total 900 Balance 500 -601.2 Meds/Results Medications: Active Medications Generic Name Dose Route Start Last Admin Trade Name Freq PRN Reason Stop Dose Admin Carvedilol 6.25 mg 07/17/25 21:00 Carvedilol 6.25 Mg Tablet PO Q12HR [facility] Dextrose 12.5 gm 07/17/25 07:01 Dextrose 50% 25 Gm/50 Ml Syringe IV PUSH PRN PRN Hypoglycemia Protocol Glucagon 1 mg 07/17/25 07:01 Glucagon For Inj 1 Mg Vial IM PRN PRN Hypoglycemia Protocol Glucose 15 gm 07/17/25 07:01 Glucose Oral Gel 15 Gm Of Glucse In 37.5 Gm Tube PO PRN PRN Hypoglycemia Protocol Octreotide Acetate 500 mcg/ 100 mls @ 10 mls/hr 07/16/25 17:30 07/17/25 15:45 Sodium Chloride IV CONT 07/17/25 17:29 50 mcg/hr .Q10H JAGIDSH 10 mls/hr 50 MCG/HR Administration Dextrose 1,000 mls @ 100 mls/hr 07/17/25 07:01 Dextrose 5% 1,000 Ml IVPB PRN PRN Hypoglycemia Protocol Sodium Chloride 1,000 mls @ 75 mls/hr 07/17/25 07:05 07/17/25 08:44 Normal Saline Iv IV CONT 75 mls/hr .[id number] JAGDISH Administration Ondansetron HCl 4 mg 07/16/25 16:42 Ondansetron Inj 4 Mg/2 Ml Vial IV PUSH Q4H PRN Nausea And Vomiting Pantoprazole Sodium 40 mg 07/18/25 09:00 Pantoprazole 40 Mg Tablet PO QAM JAGDISH Simethicone 0.6 ml 07/17/25 14:42 07/17/25 14:42 Simethicone Oral Suspension 20 Mg/0.3 Ml 30 Ml Bottle PO 0.6 ml ONCE PRN Administration Gas Discomfort Radiology Results: ITS Impressions Abdomen Ultrasound 07/17/25 08:32 Impression: 1. Cirrhotic disease of the liver with small amount of ascites. 2. Cholelithiasis. Labs Labs: Laboratory Results - last 24 hr 07/16/25 07/17/25 07/17/25 18:12 00:19 05:55 WBC 7.9 RBC 2.80 L Hgb 8.5 L 8.8 L 7.7 L Hct 28.7 L 29.1 L 25.6 L MCV 91.8 MCH 27.5 MCHC 30.0 L RDW 18.6 H Plt Count 118 L MPV 12.9 H Absolute Retic 0.12 H Percent Retic 4.42 H Immature Retic Fraction 34.2 H Retic Hgb Content 28.9 PT 15.4 H INR 1.2 Sodium 136 L Potassium 4.8 Chloride 109 H Carbon Dioxide 24 Anion Gap 3 L BUN 44 H Creatinine 1.03 Estim Creat Clear Calc 66 Estimated GFR > 60 Glucose 141 H POC Capillary Glucose Calcium 8.1 L Iron TIBC % Saturation Transferrin Ferritin Total Bilirubin 0.8 Direct Bilirubin AST 37 ALT 27 Alkaline Phosphatase 130 H Lactate Dehydrogenase Total Protein 5.5 L Albumin 2.7 L Vitamin B12 Folate 07/17/25 07/17/25 07/17/25 08:39 08:40 11:41 WBC RBC Hgb Hct MCV MCH MCHC RDW Plt Count MPV Absolute Retic Percent Retic Immature Retic Fraction Retic Hgb Content PT INR Sodium Potassium Chloride Carbon Dioxide Anion Gap BUN Creatinine Estim Creat Clear Calc Estimated GFR Glucose POC Capillary Glucose 137 H Calcium Iron 36 L TIBC 262 L % Saturation 14 L Transferrin 185 L Ferritin 21.90 Total Bilirubin 1.0 Direct Bilirubin 0.0 AST ALT Alkaline Phosphatase Lactate Dehydrogenase 206 Total Protein Albumin Vitamin B12 476.0 Folate 8.1 07/17/25 16:35 WBC RBC Hgb Hct MCV MCH MCHC RDW Plt Count MPV Absolute Retic Percent Retic Immature Retic Fraction Retic Hgb Content PT INR Sodium Potassium Chloride Carbon Dioxide Anion Gap BUN Creatinine Estim Creat Clear Calc Estimated GFR Glucose POC Capillary Glucose 118 H Calcium Iron TIBC % Saturation Transferrin Ferritin Total Bilirubin Direct Bilirubin AST ALT Alkaline Phosphatase Lactate Dehydrogenase Total Protein Albumin Vitamin B12 Folate Hospitalist MIPS Advance Care Plan I have confirmed that the patient's Advanced Care Plan is present, code status is documented, or surrogate decision maker is listed in patient medical record.: Yes Medication Reconciliation I have utilized all available resources to obtain, update and review the patients current medications (includes all prescriptions, OTC, herbals, cannabis, and nutritional supplements).: Yes
[2025-07-18] VITALS (18 sets, daily range): BP systolic 98–128; BP diastolic 45–68; PULSE 60–75; RESP 16–17; TEMP 36.5–37.1; O2SAT 95–100
[2025-07-18] MEDS: OCTREOTIDE ACETATE 500 MCG in SODIUM CHLORIDE 0.9% IV 99 ML 10 MCG IV CONT (03:40)
[2025-07-18 06:45] LABS: Hematocrit 22.8 % (42.0-52.0); Immature Platelet Fraction Pct 2.3 % (0.9-11.2); Mean Corpuscular HGB Conc 28.9 g/dl (32-36); Mean Corpuscular Hemoglobin 27.2 pg (26-34); Mean Corpuscular Volume 93.8 fl (80-100); Platelet Count Result 65 k/mm3 (150-375); Red Blood Count 2.43 M/mm3 (4.6-6.20); White Blood Count 4.3 K/mm3 (4.5-10.0)
[2025-07-18 07:12] LABS: Alanine Aminotransferase 24 U/L (6-50); Albumin Level 2.4 g/dL (3.5-5.1); Alkaline Phosphatase 121 U/L (38-126); Anion Gap 2 mmol/L (4-12); Aspartate Amino Transferase 40 U/L (17-59); Bilirubin,Total 0.6 mg/dL (0.2-1.3); Blood Urea Nitrogen 24 mg/dL (9-20); Calcium 7.6 mg/dL (8.4-10.2); Carbon Dioxide 26 mmol/L (22-30); Chloride 106 mmol/L (98-107); Estimated CRCL calculation 78 ml/min; Estimated Glomerular Filt Rate > 60; Glucose 113 mg/dL (65-110); Potassium 4.1 mmol/L (3.4-5.0); Sodium 134 mmol/L (137-145); Total Protein 5.1 g/dL (6.3-8.2)
--- NOTE | 2025-07-18 08:51 | P.PNIM_ITS ---
Progress Note: A&P Assessment and Plan (1) GI bleed: Code(s): K92.2 - Gastrointestinal hemorrhage, unspecified Status: Acute Assessment and Plan: Hematemesis As per patient recent endoscopy and colonoscopy .Reports polyps in esophagus (esophageal varices?).Possible esophageal varices from chronic liver disease (hemochromatosis) 2 episodes of hematemesis Monitor H&H Monitor INR and platelets Protonix IV b.i.d. Prophylactic ceftriaxone 1 g Octreotide bolus follows with drip GI on board Transfuse if hemoglobin less than 7 Underwent EGD on 07/18 Evidence of esophageal varices but no signs of recent bleeding Started on carvedilol Started on clear liquid tolerating well and advanced Hemoglobin 6.6 Transfuse 1 unit PRBC Discontinue fluid US abdomen:1. Cirrhotic disease of the liver with small amount of ascites. 2. Cholelithiasis. (2) Hemochromatosis: Code(s): E83.119 - Hemochromatosis, unspecified Status: Acute Assessment and Plan: S/P Therapeutic phlebotomy Follows up with the Hematology/Oncology at [facility] Ultrasound liver to rule out cirrhosis (3) COPD (chronic obstructive pulmonary disease): Code(s): J44.9 - Chronic obstructive pulmonary disease, unspecified Status: Acute Assessment and Plan: Chronic smoker Continue home medication Plan Code full code DVT prophylaxis: SCD Subjective Date/time seen: 07/18/25 08:51 Interval history: Tolerating clear liquids well. Hemoglobin dropped to 6.6. Ordered 1 unit PRBC. Underwent EGD. Evidence of esophageal varices but no signs of recent bleeding. Started on carvedilol, continue octreotide 1 more day and monitor H&H Review of Systems 2 Review of Systems: All systems reviewed & are unremarkable except as noted in HPI and below Exam Const: General: healthy appearing, no acute distress and well nourished Nutritional Appearance: well nourished Orientation/consciousness: patient oriented x3 Limitations: no limitations Neck: Neck: normal visual inspection and no meningeal signs Chest: Chest palpation & inspection: normal inspection of the chest Resp: Effort & Inspection: normal respiratory effort Auscultation: clear to auscultation bilaterally Cardio: Rate: regular rate Rhythm: regular rhythm GI: Auscultation: normal bowel sounds Rectal Exam: heme positive stool Skin: General skin exam: normal color Rashes: no rashes Wounds: no wounds Neuro: General: patient oriented x3, moves all extremities, no meningeal signs, no focal motor deficits and CN's II-XI intact bilaterally Cranial nerves: Yes Nystagmus not present Extrem: General: normal to inspection and no clubbing, cyanosis or edema Psych: Mental Status: mental status grossly normal Affect: normal affect Attitude: cooperative Objective Data Vital Signs Vital Signs: Vital Signs - 24 hr 07/17/25 12:00 07/17/25 13:27 07/17/25 14:50 Temperature 97.6 F Pulse Rate 84 85 70 Respiratory Rate 22 H 23 H Blood Pressure 123/57 L 128/63 Pulse Oximetry 99 97 Oxygen Delivery Room Air Room Air 07/17/25 15:00 07/17/25 15:12 07/17/25 16:00 Temperature Pulse Rate 68 65 75 Respiratory Rate 20 21 H Blood Pressure 129/68 134/72 Pulse Oximetry 98 100 Oxygen Delivery Room Air Room Air 07/17/25 20:00 07/17/25 20:00 07/17/25 20:05 Temperature 98.2 F Pulse Rate 80 75 Respiratory Rate 16 Blood Pressure 105/44 L Pulse Oximetry 96 Oxygen Delivery Room Air 07/18/25 00:00 07/18/25 04:00 07/18/25 05:20 Temperature 98.5 F Pulse Rate 75 67 68 Respiratory Rate 17 Blood Pressure 98/58 L Pulse Oximetry 98 Oxygen Delivery Intake/Output Intake/Output: Intake & Output 07/15/25 07/16/25 07/17/25 07/18/25 23:59 23:59 23:59 23:59 Intake Total 500 398.8 336.7 Output Total 900 200 Balance 500 -501.2 136.7 Meds/Results Medications: Active Medications Generic Name Dose Route Start Last Admin Trade Name Freq PRN Reason Stop Dose Admin Carvedilol 6.25 mg 07/18/25 09:00 Carvedilol 6.25 Mg Tablet PO Q12HR [facility] Dextrose 12.5 gm 07/17/25 07:01 Dextrose 50% 25 Gm/50 Ml Syringe IV PUSH PRN PRN Hypoglycemia Protocol Glucagon 1 mg 07/17/25 07:01 Glucagon For Inj 1 Mg Vial IM PRN PRN Hypoglycemia Protocol Glucose 15 gm 07/17/25 07:01 Glucose Oral Gel 15 Gm Of Glucse In 37.5 Gm Tube PO PRN PRN Hypoglycemia Protocol Dextrose 1,000 mls @ 100 mls/hr 07/17/25 07:01 Dextrose 5% 1,000 Ml IVPB PRN PRN Hypoglycemia Protocol Ondansetron HCl 4 mg 07/16/25 16:42 Ondansetron Inj 4 Mg/2 Ml Vial IV PUSH Q4H PRN Nausea And Vomiting Pantoprazole Sodium 40 mg 07/18/25 09:00 Pantoprazole 40 Mg Tablet PO QAM JAGDISH Simethicone 0.6 ml 07/17/25 14:42 07/17/25 14:42 Simethicone Oral Suspension 20 Mg/0.3 Ml 30 Ml Bottle PO 0.6 ml ONCE PRN Administration Gas Discomfort Radiology Results: ITS Impressions Abdomen Ultrasound 07/17/25 08:32 Impression: 1. Cirrhotic disease of the liver with small amount of ascites. 2. Cholelithiasis. Labs Labs: Laboratory Results - last 24 hr 07/17/25 07/17/25 07/17/25 08:39 08:40 11:41 Sodium Potassium Chloride Carbon Dioxide Anion Gap BUN Creatinine Estim Creat Clear Calc Estimated GFR Glucose POC Capillary Glucose 137 H Calcium Iron 36 L TIBC 262 L % Saturation 14 L Transferrin 185 L Ferritin 21.90 Total Bilirubin 1.0 Direct Bilirubin 0.0 AST ALT Alkaline Phosphatase Lactate Dehydrogenase 206 Total Protein Albumin Vitamin B12 476.0 Folate 8.1 07/17/25 07/17/25 07/18/25 16:35 20:08 06:27 Sodium 134 L Potassium 4.1 Chloride 106 Carbon Dioxide 26 Anion Gap 2 L BUN 24 H D Creatinine 0.86 Estim Creat Clear Calc 78 Estimated GFR > 60 Glucose 113 H POC Capillary Glucose 118 H 139 H Calcium 7.6 L Iron TIBC % Saturation Transferrin Ferritin Total Bilirubin 0.6 Direct Bilirubin AST 40 ALT 24 Alkaline Phosphatase 121 Lactate Dehydrogenase Total Protein 5.1 L Albumin 2.4 L Vitamin B12 Folate Hospitalist MIPS Advance Care Plan I have confirmed that the patient's Advanced Care Plan is present, code status is documented, or surrogate decision maker is listed in patient medical record.: Yes Medication Reconciliation I have utilized all available resources to obtain, update and review the patients current medications (includes all prescriptions, OTC, herbals, cannabis, and nutritional supplements).: Yes
[2025-07-18 09:06] LABS: Hemoglobin 6.6 g/dL (14.0-18.0)
[2025-07-18] MEDS: PANTOPRAZOLE 40 MG TABLET PO (09:28)
[2025-07-18] MEDS: SODIUM CHLORIDE 0.9% IV 250 ML 30 ML IV CONT (12:48)
[2025-07-18 17:20] LABS: Hematocrit 28.1 % (42.0-52.0); Hemoglobin 8.7 g/dL (14.0-18.0)
[2025-07-19] VITALS (10 sets, daily range): BP systolic 102–108; BP diastolic 43–60; PULSE 56–84; RESP 16–18; TEMP 36.4–37.4; O2SAT 99–100
[2025-07-19] MEDS: PANTOPRAZOLE 40 MG TABLET PO (08:52)
[2025-07-19 12:59] LABS: Hematocrit 30.1 % (42.0-52.0); Hemoglobin 8.9 g/dL (14.0-18.0); Immature Granulocyte Percent A 0.5 % (0-0.5); Immature Platelet Fraction Pct 4.3 % (0.9-11.2); Lymphocytes Absolute Auto 0.75 K/mm3 (0.9-3.2); Mean Corpuscular HGB Conc 29.6 g/dl (32-36); Mean Corpuscular Hemoglobin 27.7 pg (26-34); Mean Corpuscular Volume 93.8 fl (80-100); Nucleated Red Blood Cells Absolute Auto 0.000 K/mm3 (0.0-0.012); Nucleated Red Blood Cells Perc 0.0 % (0.0-0.2); Platelet Count Result 71 k/mm3 (150-375); Red Blood Count 3.21 M/mm3 (4.6-6.20); White Blood Count 5.5 K/mm3 (4.5-10.0)
[2025-07-19 13:08] LABS: Alanine Aminotransferase 31 U/L (6-50); Albumin Level 3.0 g/dL (3.5-5.1); Alkaline Phosphatase 152 U/L (38-126); Anion Gap 4 mmol/L (4-12); Aspartate Amino Transferase 55 U/L (17-59); Bilirubin,Total 0.9 mg/dL (0.2-1.3); Blood Urea Nitrogen 15 mg/dL (9-20); Calcium 8.0 mg/dL (8.4-10.2); Carbon Dioxide 25 mmol/L (22-30); Chloride 105 mmol/L (98-107); Estimated CRCL calculation 76 ml/min; Estimated Glomerular Filt Rate > 60; Glucose 129 mg/dL (65-110); Potassium 3.8 mmol/L (3.4-5.0); Sodium 134 mmol/L (137-145); Total Protein 6.0 g/dL (6.3-8.2)
[2025-07-19 13:41] LABS: Anisocytosis 1+
[2025-07-19 13:42] LABS: Ovalocytes 1+
[2025-07-19 13:43] LABS: Schistocytes None Seen
--- NOTE | 2025-07-19 14:41 | PM.IMPN ---
Progress Note: A&P Assessment and Plan (1) GI bleed: Code(s): K92.2 - Gastrointestinal hemorrhage, unspecified Status: Acute Assessment and Plan: Hematemesis As per patient recent endoscopy and colonoscopy .Reports polyps in esophagus (esophageal varices?).Possible esophageal varices from chronic liver disease (hemochromatosis) 2 episodes of hematemesis Monitor H&H Monitor INR and platelets Protonix IV b.i.d. Prophylactic ceftriaxone 1 g Octreotide bolus follows with drip GI on board Transfuse if hemoglobin less than 7 Underwent EGD on 07/18 Evidence of esophageal varices but no signs of recent bleeding. Moderate erosive esophagitis noted and hence variceal ligation was not deemed safe Completed octreotide infusion Started on carvedilol Started on clear liquid tolerating well and advanced Hemoglobin 6.6 post transfusion up to 8.7. Recheck and monitor US abdomen:1. Cirrhotic disease of the liver with small amount of ascites. 2. Cholelithiasis. (2) Hemochromatosis: Code(s): E83.119 - Hemochromatosis, unspecified Status: Acute Assessment and Plan: S/P Therapeutic phlebotomy Follows up with the Hematology/Oncology at [facility] Ultrasound liver to rule out cirrhosis (3) COPD (chronic obstructive pulmonary disease): Code(s): J44.9 - Chronic obstructive pulmonary disease, unspecified Status: Acute Assessment and Plan: Chronic smoker Continue home medication Plan Code full code DVT prophylaxis: SCD Subjective Date/time seen: 07/19/25 14:41 Interval history: No overnight events. Denies any new complaints. Family at bedside and discussed with her. Review of Systems Review of Systems: All systems reviewed & are unremarkable except as noted in HPI and below Exam Narrative: GENERAL: The patient is well developed, not in acute distress HEENT: Nonicteric sclerae, PERRLA, EOMI. Oropharynx clear. Moist mucous membranes. Conjunctivae appear well perfused. CHEST: Chest wall is nontender. HEART: Regular rate and rhythm without murmur, rubs, or gallops LUNGS: Clear to auscultation bilaterally. no respiratory distress ABDOMEN: Soft, positive bowel sounds, non-tender, no organomegaly. SKIN: No rash, no excessive bruising, petechiae, or purpura. NEUROLOGIC: Cranial nerves II-XII intact, alert and oriented x 3, no gross motor deficits EXTREMITIES: no cyanosis or clubbing, trace edema bilateral lower extremities Objective Data Vital Signs Vital Signs: Vital Signs - 24 hr 07/18/25 15:03 07/18/25 15:38 07/18/25 16:00 Temperature 98.0 F 97.7 F Pulse Rate 60 60 60 Respiratory Rate 16 16 Blood Pressure 115/68 109/58 L Pulse Oximetry 100 100 Oxygen Delivery 07/18/25 20:00 07/18/25 20:19 07/18/25 20:22 Temperature 98.7 F Pulse Rate 64 64 Respiratory Rate 16 Blood Pressure 106/49 L Pulse Oximetry 98 Oxygen Delivery Room Air 07/18/25 20:35 07/19/25 00:00 07/19/25 04:00 Temperature Pulse Rate 64 56 L 59 L Respiratory Rate Blood Pressure Pulse Oximetry Oxygen Delivery 07/19/25 05:10 07/19/25 08:00 07/19/25 08:52 Temperature 98.3 F Pulse Rate 61 76 76 Respiratory Rate 16 Blood Pressure 102/44 L Pulse Oximetry 99 Oxygen Delivery 07/19/25 12:00 07/19/25 14:00 Temperature 99.4 F Pulse Rate 60 84 Respiratory Rate 18 Blood Pressure 102/43 L Pulse Oximetry 99 Oxygen Delivery Intake/Output Intake/Output: Intake & Output 07/16/25 07/17/25 07/18/25 07/19/25 23:59 23:59 23:59 23:59 Intake Total 500 398.8 1946.7 460 Output Total 900 200 Balance 500 -501.2 1746.7 460 Meds/Results Medications: Active Medications Generic Name Dose Route Start Last Admin Trade Name Freq PRN Reason Stop Dose Admin Carvedilol 6.25 mg 07/18/25 09:00 07/19/25 08:52 Carvedilol 6.25 Mg Tablet PO 6.25 mg Q12HR JAGDISH Administration Dextrose 12.5 gm 07/17/25 07:01 Dextrose 50% 25 Gm/50 Ml Syringe IV PUSH PRN PRN Hypoglycemia Protocol Glucagon 1 mg 07/17/25 07:01 Glucagon For Inj 1 Mg Vial IM PRN PRN Hypoglycemia Protocol Glucose 15 gm 07/17/25 07:01 Glucose Oral Gel 15 Gm Of Glucse In 37.5 Gm Tube PO PRN PRN Hypoglycemia Protocol Dextrose 1,000 mls @ 100 mls/hr 07/17/25 07:01 Dextrose 5% 1,000 Ml IVPB PRN PRN Hypoglycemia Protocol Ondansetron HCl 4 mg 07/16/25 16:42 Ondansetron Inj 4 Mg/2 Ml Vial IV PUSH Q4H PRN Nausea And Vomiting Pantoprazole Sodium 40 mg 07/18/25 09:00 07/19/25 08:52 Pantoprazole 40 Mg Tablet PO 40 mg QAM JAGDISH Administration Simethicone 0.6 ml 07/17/25 14:42 07/17/25 14:42 Simethicone Oral Suspension 20 Mg/0.3 Ml 30 Ml Bottle PO 0.6 ml ONCE PRN Administration Gas Discomfort Radiology Results: ITS Impressions Abdomen Ultrasound 07/17/25 08:32 Impression: 1. Cirrhotic disease of the liver with small amount of ascites. 2. Cholelithiasis. Labs Labs: Laboratory Results - last 24 hr 07/18/25 07/18/25 07/18/25 09:51 16:43 17:08 WBC RBC Hgb 8.7 L Hct 28.1 L MCV MCH MCHC RDW Plt Count MPV Immature Gran % (Auto) Neut % (Auto) Lymph % (Auto) [place] % (Auto) Eos % (Auto) Baso % (Auto) Lymph # (Auto) [place] # (Auto) Eos # (Auto) Baso # (Auto) Abs Immat Gran (auto) Absolute Neuts (auto) Absolute Nucleated RBC Band Neutrophils % Nucleated RBC % Platelet Estimate % Immature Plt Fraction Anisocytosis Ovalocytes Schistocytes Sodium Potassium Chloride Carbon Dioxide Anion Gap BUN Creatinine Estim Creat Clear Calc Estimated GFR Glucose POC Capillary Glucose 108 H Calcium Total Bilirubin AST ALT Alkaline Phosphatase Total Protein Albumin Crossmatch See Detail 07/18/25 07/19/25 07/19/25 19:39 07:33 11:42 WBC RBC Hgb Hct MCV MCH MCHC RDW Plt Count MPV Immature Gran % (Auto) Neut % (Auto) Lymph % (Auto) [place] % (Auto) Eos % (Auto) Baso % (Auto) Lymph # (Auto) [place] # (Auto) Eos # (Auto) Baso # (Auto) Abs Immat Gran (auto) Absolute Neuts (auto) Absolute Nucleated RBC Band Neutrophils % Nucleated RBC % Platelet Estimate % Immature Plt Fraction Anisocytosis Ovalocytes Schistocytes Sodium Potassium Chloride Carbon Dioxide Anion Gap BUN Creatinine Estim Creat Clear Calc Estimated GFR Glucose POC Capillary Glucose 123 H 117 H 138 H Calcium Total Bilirubin AST ALT Alkaline Phosphatase Total Protein Albumin Crossmatch 07/19/25 12:22 WBC 5.5 RBC 3.21 L Hgb 8.9 L Hct 30.1 L MCV 93.8 MCH 27.7 MCHC 29.6 L RDW 18.0 H Plt Count 71 L MPV 12.1 H Immature Gran % (Auto) 0.5 Neut % (Auto) 68.9 Lymph % (Auto) 13.6 L [place] % (Auto) 7.6 Eos % (Auto) 8.3 H Baso % (Auto) 1.1 Lymph # (Auto) 0.75 L [place] # (Auto) 0.4 Eos # (Auto) 0.5 H Baso # (Auto) 0.1 Abs Immat Gran (auto) 0.03 Absolute Neuts (auto) 3.8 Absolute Nucleated RBC 0.000 Band Neutrophils % Not Reportable Nucleated RBC % 0.0 Platelet Estimate Decreased % Immature Plt Fraction 4.3 Anisocytosis 1+ Ovalocytes 1+ Schistocytes None seen Sodium 134 L Potassium 3.8 Chloride 105 Carbon Dioxide 25 Anion Gap 4 BUN 15 D Creatinine 0.89 Estim Creat Clear Calc 76 Estimated GFR > 60 Glucose 129 H POC Capillary Glucose Calcium 8.0 L Total Bilirubin 0.9 AST 55 ALT 31 Alkaline Phosphatase 152 H Total Protein 6.0 L Albumin 3.0 L Crossmatch
--- NOTE | 2025-07-19 14:52 | WPDGIPROGNO ---
Progress Note: A&P Assessment and Plan (1) Portal hypertensive gastropathy: Code(s): K76.6 - Portal hypertension; K31.89 - Other diseases of stomach and duodenum Status: Acute Assessment and Plan: noted in recent egd no more bleeding continue with coreg hopefully home tomorrow (2) GI bleed: Code(s): K92.2 - Gastrointestinal hemorrhage, unspecified Status: Acute (3) Acute on chronic anemia: Code(s): D64.9 - Anemia, unspecified Status: Acute Assessment and Plan: stable after transfusion (4) Cirrhosis: Code(s): K74.60 - Unspecified cirrhosis of liver Status: Acute Assessment and Plan: probably from hemochromatosis (5) Hemochromatosis: Code(s): E83.119 - Hemochromatosis, unspecified Status: Acute (6) Esophageal varices: Code(s): I85.00 - Esophageal varices without bleeding Status: Acute Subjective Date/time seen: 07/19/25 14:52 Interval history: comfortable and eating no more signs of gib family member at bedside Review of Systems Review of Systems: All systems reviewed & are unremarkable except as noted in HPI and below Exam Const: General: comfortable HENMT: Face/Nose/Sinus: Normal nares present Eyes: General: appearance normal, both eyes and all related structures Neck: Neck: supple Resp: Effort & Inspection: normal respiratory effort Cardio: Rate: regular rate GI: GI Palp: Yes Soft to palpation and No Tenderness to palpation present (GI) Auscultation: normal bowel sounds Skin: General skin exam: normal color Neuro: Speech: normal speech Motor exam (neuro): 5/5 motor strength present throughout Extrem: General: pedal edema Psych: Mental Status: mental status grossly normal Objective Data Vital Signs Vital Signs: Vital Signs - 24 hr 07/18/25 15:03 07/18/25 15:38 07/18/25 16:00 Temperature 98.0 F 97.7 F Pulse Rate 60 60 60 Respiratory Rate 16 16 Blood Pressure 115/68 109/58 L Pulse Oximetry 100 100 Oxygen Delivery 07/18/25 20:00 07/18/25 20:19 07/18/25 20:22 Temperature 98.7 F Pulse Rate 64 64 Respiratory Rate 16 Blood Pressure 106/49 L Pulse Oximetry 98 Oxygen Delivery Room Air 07/18/25 20:35 07/19/25 00:00 07/19/25 04:00 Temperature Pulse Rate 64 56 L 59 L Respiratory Rate Blood Pressure Pulse Oximetry Oxygen Delivery 07/19/25 05:10 07/19/25 08:00 07/19/25 08:52 Temperature 98.3 F Pulse Rate 61 76 76 Respiratory Rate 16 Blood Pressure 102/44 L Pulse Oximetry 99 Oxygen Delivery 07/19/25 12:00 07/19/25 14:00 Temperature 99.4 F Pulse Rate 60 84 Respiratory Rate 18 Blood Pressure 102/43 L Pulse Oximetry 99 Oxygen Delivery Intake/Output Intake/Output: Intake & Output 07/16/25 07/17/25 07/18/25 07/19/25 23:59 23:59 23:59 23:59 Intake Total 500 398.8 1946.7 460 Output Total 900 200 Balance 500 -501.2 1746.7 460 Meds/Results Medications: Active Medications Generic Name Dose Route Start Last Admin Trade Name Freq PRN Reason Stop Dose Admin Carvedilol 6.25 mg 07/18/25 09:00 07/19/25 08:52 Carvedilol 6.25 Mg Tablet PO 6.25 mg Q12HR JAGDISH Administration Dextrose 12.5 gm 07/17/25 07:01 Dextrose 50% 25 Gm/50 Ml Syringe IV PUSH PRN PRN Hypoglycemia Protocol Glucagon 1 mg 07/17/25 07:01 Glucagon For Inj 1 Mg Vial IM PRN PRN Hypoglycemia Protocol Glucose 15 gm 07/17/25 07:01 Glucose Oral Gel 15 Gm Of Glucse In 37.5 Gm Tube PO PRN PRN Hypoglycemia Protocol Dextrose 1,000 mls @ 100 mls/hr 07/17/25 07:01 Dextrose 5% 1,000 Ml IVPB PRN PRN Hypoglycemia Protocol Ondansetron HCl 4 mg 07/16/25 16:42 Ondansetron Inj 4 Mg/2 Ml Vial IV PUSH Q4H PRN Nausea And Vomiting Pantoprazole Sodium 40 mg 07/18/25 09:00 07/19/25 08:52 Pantoprazole 40 Mg Tablet PO 40 mg QAM JAGDISH Administration Simethicone 0.6 ml 07/17/25 14:42 07/17/25 14:42 Simethicone Oral Suspension 20 Mg/0.3 Ml 30 Ml Bottle PO 0.6 ml ONCE PRN Administration Gas Discomfort Radiology Results: ITS Impressions Abdomen Ultrasound 07/17/25 08:32 Impression: 1. Cirrhotic disease of the liver with small amount of ascites. 2. Cholelithiasis. Labs Labs: Laboratory Results - last 24 hr 07/18/25 07/18/25 07/18/25 09:51 16:43 17:08 WBC RBC Hgb 8.7 L Hct 28.1 L MCV MCH MCHC RDW Plt Count MPV Immature Gran % (Auto) Neut % (Auto) Lymph % (Auto) [place] % (Auto) Eos % (Auto) Baso % (Auto) Lymph # (Auto) [place] # (Auto) Eos # (Auto) Baso # (Auto) Abs Immat Gran (auto) Absolute Neuts (auto) Absolute Nucleated RBC Band Neutrophils % Nucleated RBC % Platelet Estimate % Immature Plt Fraction Anisocytosis Ovalocytes Schistocytes Sodium Potassium Chloride Carbon Dioxide Anion Gap BUN Creatinine Estim Creat Clear Calc Estimated GFR Glucose POC Capillary Glucose 108 H Calcium Total Bilirubin AST ALT Alkaline Phosphatase Total Protein Albumin Crossmatch See Detail 07/18/25 07/19/25 07/19/25 19:39 07:33 11:42 WBC RBC Hgb Hct MCV MCH MCHC RDW Plt Count MPV Immature Gran % (Auto) Neut % (Auto) Lymph % (Auto) [place] % (Auto) Eos % (Auto) Baso % (Auto) Lymph # (Auto) [place] # (Auto) Eos # (Auto) Baso # (Auto) Abs Immat Gran (auto) Absolute Neuts (auto) Absolute Nucleated RBC Band Neutrophils % Nucleated RBC % Platelet Estimate % Immature Plt Fraction Anisocytosis Ovalocytes Schistocytes Sodium Potassium Chloride Carbon Dioxide Anion Gap BUN Creatinine Estim Creat Clear Calc Estimated GFR Glucose POC Capillary Glucose 123 H 117 H 138 H Calcium Total Bilirubin AST ALT Alkaline Phosphatase Total Protein Albumin Crossmatch 07/19/25 12:22 WBC 5.5 RBC 3.21 L Hgb 8.9 L Hct 30.1 L MCV 93.8 MCH 27.7 MCHC 29.6 L RDW 18.0 H Plt Count 71 L MPV 12.1 H Immature Gran % (Auto) 0.5 Neut % (Auto) 68.9 Lymph % (Auto) 13.6 L [place] % (Auto) 7.6 Eos % (Auto) 8.3 H Baso % (Auto) 1.1 Lymph # (Auto) 0.75 L [place] # (Auto) 0.4 Eos # (Auto) 0.5 H Baso # (Auto) 0.1 Abs Immat Gran (auto) 0.03 Absolute Neuts (auto) 3.8 Absolute Nucleated RBC 0.000 Band Neutrophils % Not Reportable Nucleated RBC % 0.0 Platelet Estimate Decreased % Immature Plt Fraction 4.3 Anisocytosis 1+ Ovalocytes 1+ Schistocytes None seen Sodium 134 L Potassium 3.8 Chloride 105 Carbon Dioxide 25 Anion Gap 4 BUN 15 D Creatinine 0.89 Estim Creat Clear Calc 76 Estimated GFR > 60 Glucose 129 H POC Capillary Glucose Calcium 8.0 L Total Bilirubin 0.9 AST 55 ALT 31 Alkaline Phosphatase 152 H Total Protein 6.0 L Albumin 3.0 L Crossmatch
[2025-07-20] VITALS: PULSE 59
[2025-07-20 04:00] VITALS: PULSE 58
[2025-07-20 05:34] VITALS: BP 108/58; PULSE 64; RESP 18; TEMP 36.4; O2SAT 99
[2025-07-20 05:47] LABS: Hematocrit 25.4 % (42.0-52.0); Hemoglobin 7.7 g/dL (14.0-18.0); Immature Granulocyte Percent A 0.6 % (0-0.5); Immature Platelet Fraction Pct 4.5 % (0.9-11.2); Lymphocytes Absolute Auto 0.55 K/mm3 (0.9-3.2); Mean Corpuscular HGB Conc 30.3 g/dl (32-36); Mean Corpuscular Hemoglobin 27.9 pg (26-34); Mean Corpuscular Volume 92.0 fl (80-100); Nucleated Red Blood Cells Absolute Auto 0.000 K/mm3 (0.0-0.012); Nucleated Red Blood Cells Perc 0.0 % (0.0-0.2); Platelet Count Result 49 k/mm3 (150-375); Red Blood Count 2.76 M/mm3 (4.6-6.20); White Blood Count 3.4 K/mm3 (4.5-10.0)
[2025-07-20 06:03] LABS: Alanine Aminotransferase 26 U/L (6-50); Albumin Level 2.5 g/dL (3.5-5.1); Alkaline Phosphatase 141 U/L (38-126); Anion Gap 2 mmol/L (4-12); Aspartate Amino Transferase 41 U/L (17-59); Bilirubin,Total 0.8 mg/dL (0.2-1.3); Blood Urea Nitrogen 12 mg/dL (9-20); Calcium 7.8 mg/dL (8.4-10.2); Carbon Dioxide 25 mmol/L (22-30); Chloride 106 mmol/L (98-107); Estimated CRCL calculation 79 ml/min; Estimated Glomerular Filt Rate > 60; Glucose 100 mg/dL (65-110); Magnesium 2.1 mg/dL (1.6-2.3); Potassium 3.7 mmol/L (3.4-5.0); Sodium 133 mmol/L (137-145); Total Protein 5.2 g/dL (6.3-8.2)
[2025-07-20 06:32] LABS: Hypochromasia 1+
[2025-07-20 06:33] LABS: Anisocytosis 1+; Burr Cells Occasional; Ovalocytes Occasional; Schistocytes None Seen; Target Cells Occasional
[2025-07-20 08:00] VITALS: PULSE 65
[2025-07-20] MEDS: PANTOPRAZOLE 40 MG TABLET PO (08:34)
[2025-07-20 08:35] VITALS: PULSE 75
[2025-07-20 11:21] LABS: Hematocrit 28.9 % (42.0-52.0); Hemoglobin 8.6 g/dL (14.0-18.0); Immature Granulocyte Percent A 0.9 % (0-0.5); Immature Platelet Fraction Pct 4.1 % (0.9-11.2); Lymphocytes Absolute Auto 0.80 K/mm3 (0.9-3.2); Mean Corpuscular HGB Conc 29.8 g/dl (32-36); Mean Corpuscular Hemoglobin 27.5 pg (26-34); Mean Corpuscular Volume 92.3 fl (80-100); Nucleated Red Blood Cells Absolute Auto 0.000 K/mm3 (0.0-0.012); Nucleated Red Blood Cells Perc 0.0 % (0.0-0.2); Platelet Count Result 72 k/mm3 (150-375); Red Blood Count 3.13 M/mm3 (4.6-6.20); White Blood Count 5.8 K/mm3 (4.5-10.0)
[2025-07-20 11:40] LABS: Anisocytosis 1+; Hypochromasia 1+; Schistocytes None Seen
[2025-07-20 11:41] LABS: Polychromasia Occasional
--- NOTE | 2025-07-20 11:51 | PM.DS ---
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 Prophylactic ceftriaxone 1 g Octreotide bolus follows with drip GI on board Transfuse if hemoglobin less than 7 Underwent EGD on 07/18 Evidence of esophageal varices but no signs of recent bleeding. Moderate erosive esophagitis noted and hence variceal ligation was not deemed safe Completed octreotide infusion Started on carvedilol Started on clear liquid tolerating well and advanced Hemoglobin 6.6 post transfusion up to 8.7. H&H remains stable Recheck and monitor US abdomen:1. Cirrhotic disease of the liver with small amount of ascites. 2. Cholelithiasis. # Hemochromatosis: S/P Therapeutic phlebotomy Follows up with the Hematology/Oncology at [facility] Ultrasound liver to rule out cirrhosis # COPD (chronic obstructive pulmonary disease): Chronic smoker Continue home medication # Code full code # DVT prophylaxis: SCD Time Spent with Patient Time attestation: Total time spent providing and/or coordinating discharge services: 45 minutes Exam Narrative: GENERAL: The patient is well developed, not in acute distress HEENT: Nonicteric sclerae, PERRLA, EOMI. Oropharynx clear. Moist mucous membranes. Conjunctivae appear well perfused. CHEST: Chest wall is nontender. HEART: Regular rate and rhythm without murmur, rubs, or gallops LUNGS: Clear to auscultation bilaterally. no respiratory distress ABDOMEN: Soft, positive bowel sounds, non-tender, no organomegaly. SKIN: No rash, no excessive bruising, petechiae, or purpura. NEUROLOGIC: Cranial nerves II-XII intact, alert and oriented x 3, no gross motor deficits EXTREMITIES: no cyanosis or clubbing, trace edema bilateral lower extremities DS: Data Data Completed and Pending Labs on day of discharge: Labs from last 24 hours 07/20/25 07/20/25 07/20/25 11:33 11:09 07:35 WBC 5.8 RBC 3.13 L Hgb 8.6 L Hct 28.9 L MCV 92.3 MCH 27.5 MCHC 29.8 L RDW 18.0 H Plt Count 72 L MPV 12.1 H Immature Gran % (Auto) 0.9 H Neut % (Auto) 65.8 Lymph % (Auto) 13.8 L Evans % (Auto) 12.4 H Eos % (Auto) 6.2 H Baso % (Auto) 0.9 Lymph # (Auto) 0.80 L Evans # (Auto) 0.7 H Eos # (Auto) 0.4 H Baso # (Auto) 0.1 Abs Immat Gran (auto) 0.05 H Absolute Neuts (auto) 3.8 Absolute Nucleated RBC 0.000 Band Neutrophils % Not Reportable Nucleated RBC % 0.0 Platelet Estimate Decreased % Immature Plt Fraction 4.1 Polychromasia Occasional Hypochromasia 1+ Anisocytosis 1+ Target Cells Ovalocytes Chrissy Cells Schistocytes None seen Sodium Potassium Chloride Carbon Dioxide Anion Gap BUN Creatinine Estim Creat Clear Calc Estimated GFR Glucose POC Capillary Glucose 139 H 114 H Calcium Magnesium Total Bilirubin AST ALT Alkaline Phosphatase Total Protein Albumin 07/20/25 07/19/25 07/19/25 05:23 20:16 16:25 WBC 3.4 L RBC 2.76 L Hgb 7.7 L Hct 25.4 L MCV 92.0 MCH 27.9 MCHC 30.3 L RDW 17.9 H Plt Count 49 L MPV 10.2 Immature Gran % (Auto) 0.6 H Neut % (Auto) 64.3 Lymph % (Auto) 16.2 L Evans % (Auto) 10.9 H Eos % (Auto) 7.1 H Baso % (Auto) 0.9 Lymph # (Auto) 0.55 L Evans # (Auto) 0.4 Eos # (Auto) 0.2 Baso # (Auto) 0.0 Abs Immat Gran (auto) 0.02 Absolute Neuts (auto) 2.2 Absolute Nucleated RBC 0.000 Band Neutrophils % Not Reportable Nucleated RBC % 0.0 Platelet Estimate Decreased % Immature Plt Fraction 4.5 Polychromasia Hypochromasia 1+ Anisocytosis 1+ Target Cells Occasional Ovalocytes Occasional Champion Cells Occasional Schistocytes None seen Sodium 133 L Potassium 3.7 Chloride 106 Carbon Dioxide 25 Anion Gap 2 L BUN 12 Creatinine 0.85 Estim Creat Clear Calc 79 Estimated GFR > 60 Glucose 100 POC Capillary Glucose 133 H 111 H Calcium 7.8 L Magnesium 2.1 Total Bilirubin 0.8 AST 41 ALT 26 Alkaline Phosphatase 141 H Total Protein 5.2 L Albumin 2.5 L 07/19/25 12:22 WBC 5.5 RBC 3.21 L Hgb 8.9 L Hct 30.1 L MCV 93.8 MCH 27.7 MCHC 29.6 L RDW 18.0 H Plt Count 71 L MPV 12.1 H Immature Gran % (Auto) 0.5 Neut % (Auto) 68.9 Lymph % (Auto) 13.6 L Evans % (Auto) 7.6 Eos % (Auto) 8.3 H Baso % (Auto) 1.1 Lymph # (Auto) 0.75 L Evans # (Auto) 0.4 Eos # (Auto) 0.5 H Baso # (Auto) 0.1 Abs Immat Gran (auto) 0.03 Absolute Neuts (auto) 3.8 Absolute Nucleated RBC 0.000 Band Neutrophils % Not Reportable Nucleated RBC % 0.0 Platelet Estimate Decreased % Immature Plt Fraction 4.3 Polychromasia Hypochromasia Anisocytosis 1+ Target Cells Ovalocytes 1+ Chrissy Cells Schistocytes None seen Sodium 134 L Potassium 3.8 Chloride 105 Carbon Dioxide 25 Anion Gap 4 BUN 15 D Creatinine 0.89 Estim Creat Clear Calc 76 Estimated GFR > 60 Glucose 129 H POC Capillary Glucose Calcium 8.0 L Magnesium Total Bilirubin 0.9 AST 55 ALT 31 Alkaline Phosphatase 152 H Total Protein 6.0 L Albumin 3.0 L Imaging Radiologist's impression: ITS Impressions Abdomen Ultrasound 07/17/25 08:32 Impression: 1. Cirrhotic disease of the liver with small amount of ascites. 2. Cholelithiasis. Discharge Plan Discharge Attending physician on discharge: Jamie Hardin Consulting providers: Omar Smith Discharging Clinician: Jamie Hardin Anticipated Discharge Date/Time: 07/20/25 11:52 Patient Disposition: Home Activity: as tolerated Diet: heart healthy Discharge Instructions: Follow-up with GI as outpatient basis Follow-up with independent living instructor as an outpatient basis. Patient Instructions: Antibiotic Form Patient Language: Portuguese Stand Alone Forms: General Discharge Information Follow-up/Referrals: Stacy,Mg Henry MD [Other] - 1 Week Discharge Medications: New pantoprazole 40 mg Tablet,Delayed Release (Dr/Ec) 40 mg PO QAM Qty: 30 0RF carvedilol [Coreg] 6.25 mg Tablet 6.25 mg PO Q12HR Qty: 60 0RF Continued allopurinol 300 mg tablet 300 mg PO DAILY Trelegy Ellipta 200-62.5-25 mcg blister with device INHALATION betamethasone dipropionate 0.05 % cream 1 applic TOPICAL Q12H Discontinued fosinopril 20 mg tablet 20 mg PO DAILY Other Ambulatory Orders: Complete Blood Count with Diff (Routine) Timeframe: 1 Week Location: Determined by Patient Ordered By: Jamie Hardin Comprehensive Metabolic Panel (Routine) Timeframe: 1 Week Location: Determined by Patient Ordered By: Jamie Hardin Date of admission: 07/18/25 10:36 Primary Care Provider: GianMg MD Admitting Provider: Alexander Sanches Attending physician on admission: Alexander Sanches Condition: Stable
[2025-07-20 12:00] VITALS: PULSE 75
--- NOTE | 2025-07-20 12:21 | P.PNGI_ITS ---
Progress Note: A&P Assessment and Plan (1) Portal hypertensive gastropathy: Code(s): K76.6 - Portal hypertension; K31.89 - Other diseases of stomach and duodenum Status: Acute Assessment and Plan: noted in recent egd no more bleeding continue with coreg h/h stable after transfusion no objections to discharge (2) GI bleed: Code(s): K92.2 - Gastrointestinal hemorrhage, unspecified Status: Acute Assessment and Plan: resolved (3) Acute on chronic anemia: Code(s): D64.9 - Anemia, unspecified Status: Acute Assessment and Plan: stable after transfusion (4) Cirrhosis: Code(s): K74.60 - Unspecified cirrhosis of liver Status: Acute Assessment and Plan: probably from hemochromatosis will need follow-up (5) Hemochromatosis: Code(s): E83.119 - Hemochromatosis, unspecified Status: Acute (6) Esophageal varices: Code(s): I85.00 - Esophageal varices without bleeding Status: Acute Subjective Date/time seen: 07/20/25 12:21 Interval history: no more bleeding, he is comfortable and eating lunch Review of Systems 2 Review of Systems: All systems reviewed & are unremarkable except as noted in HPI and below Exam Const: General: comfortable HENMT: Face/Nose/Sinus: Normal nares present Eyes: General: appearance normal, both eyes and all related structures Neck: Neck: supple Resp: Effort & Inspection: normal respiratory effort Cardio: Rate: regular rate GI: GI Palp: Yes Soft to palpation and No Tenderness to palpation present (GI) Auscultation: normal bowel sounds Skin: General skin exam: normal color Neuro: Speech: normal speech Motor exam (neuro): 5/5 motor strength present throughout Extrem: General: pedal edema Psych: Mental Status: mental status grossly normal Objective Data Vital Signs Vital Signs: Vital Signs - 24 hr 07/19/25 14:00 07/19/25 16:00 07/19/25 20:00 Temperature 99.4 F Pulse Rate 84 72 Respiratory Rate 18 Blood Pressure 102/43 L Pulse Oximetry 99 Oxygen Delivery Room Air 07/19/25 20:00 07/19/25 20:20 07/20/25 00:00 Temperature 97.5 F L Pulse Rate 67 62 59 L Respiratory Rate 18 Blood Pressure 108/60 Pulse Oximetry 100 Oxygen Delivery 07/20/25 04:00 07/20/25 05:34 07/20/25 08:00 Temperature 97.5 F L Pulse Rate 58 L 64 65 Respiratory Rate 18 Blood Pressure 108/58 L Pulse Oximetry 99 Oxygen Delivery 07/20/25 08:35 07/20/25 12:00 Temperature Pulse Rate 75 75 Respiratory Rate Blood Pressure Pulse Oximetry Oxygen Delivery Intake/Output Intake/Output: Intake & Output 07/17/25 07/18/25 07/19/25 07/20/25 23:59 23:59 23:59 23:59 Intake Total 398.8 1946.7 700 590 Output Total 900 200 Balance -501.2 1746.7 700 590 Meds/Results Medications: Active Medications Generic Name Dose Route Start Last Admin Trade Name Freq PRN Reason Stop Dose Admin Carvedilol 6.25 mg 07/18/25 09:00 07/20/25 08:35 Carvedilol 6.25 Mg Tablet PO 6.25 mg Q12HR JAGDISH Administration Dextrose 12.5 gm 07/17/25 07:01 Dextrose 50% 25 Gm/50 Ml Syringe IV PUSH PRN PRN Hypoglycemia Protocol Glucagon 1 mg 07/17/25 07:01 Glucagon For Inj 1 Mg Vial IM PRN PRN Hypoglycemia Protocol Glucose 15 gm 07/17/25 07:01 Glucose Oral Gel 15 Gm Of Glucse In 37.5 Gm Tube PO PRN PRN Hypoglycemia Protocol Dextrose 1,000 mls @ 100 mls/hr 07/17/25 07:01 Dextrose 5% 1,000 Ml IVPB PRN PRN Hypoglycemia Protocol Ondansetron HCl 4 mg 07/16/25 16:42 Ondansetron Inj 4 Mg/2 Ml Vial IV PUSH Q4H PRN Nausea And Vomiting Pantoprazole Sodium 40 mg 07/18/25 09:00 07/20/25 08:34 Pantoprazole 40 Mg Tablet PO 40 mg QAM JAGDISH Administration Simethicone 0.6 ml 07/17/25 14:42 07/17/25 14:42 Simethicone Oral Suspension 20 Mg/0.3 Ml 30 Ml Bottle PO 0.6 ml ONCE PRN Administration Gas Discomfort Radiology Results: ITS Impressions Abdomen Ultrasound 07/17/25 08:32 Impression: 1. Cirrhotic disease of the liver with small amount of ascites. 2. Cholelithiasis. Labs Labs: Laboratory Results - last 24 hr 07/19/25 07/19/25 07/19/25 12:22 16:25 20:16 WBC 5.5 RBC 3.21 L Hgb 8.9 L Hct 30.1 L MCV 93.8 MCH 27.7 MCHC 29.6 L RDW 18.0 H Plt Count 71 L MPV 12.1 H Immature Gran % (Auto) 0.5 Neut % (Auto) 68.9 Lymph % (Auto) 13.6 L [place] % (Auto) 7.6 Eos % (Auto) 8.3 H Baso % (Auto) 1.1 Lymph # (Auto) 0.75 L [place] # (Auto) 0.4 Eos # (Auto) 0.5 H Baso # (Auto) 0.1 Abs Immat Gran (auto) 0.03 Absolute Neuts (auto) 3.8 Absolute Nucleated RBC 0.000 Band Neutrophils % Not Reportable Nucleated RBC % 0.0 Platelet Estimate Decreased % Immature Plt Fraction 4.3 Polychromasia Hypochromasia Anisocytosis 1+ Target Cells Ovalocytes 1+ Sprague Cells Schistocytes None seen Sodium 134 L Potassium 3.8 Chloride 105 Carbon Dioxide 25 Anion Gap 4 BUN 15 D Creatinine 0.89 Estim Creat Clear Calc 76 Estimated GFR > 60 Glucose 129 H POC Capillary Glucose 111 H 133 H Calcium 8.0 L Magnesium Total Bilirubin 0.9 AST 55 ALT 31 Alkaline Phosphatase 152 H Total Protein 6.0 L Albumin 3.0 L 07/20/25 07/20/25 07/20/25 05:23 07:35 11:09 WBC 3.4 L 5.8 RBC 2.76 L 3.13 L Hgb 7.7 L 8.6 L Hct 25.4 L 28.9 L MCV 92.0 92.3 MCH 27.9 27.5 MCHC 30.3 L 29.8 L RDW 17.9 H 18.0 H Plt Count 49 L 72 L MPV 10.2 12.1 H Immature Gran % (Auto) 0.6 H 0.9 H Neut % (Auto) 64.3 65.8 Lymph % (Auto) 16.2 L 13.8 L [place] % (Auto) 10.9 H 12.4 H Eos % (Auto) 7.1 H 6.2 H Baso % (Auto) 0.9 0.9 Lymph # (Auto) 0.55 L 0.80 L [place] # (Auto) 0.4 0.7 H Eos # (Auto) 0.2 0.4 H Baso # (Auto) 0.0 0.1 Abs Immat Gran (auto) 0.02 0.05 H Absolute Neuts (auto) 2.2 3.8 Absolute Nucleated RBC 0.000 0.000 Band Neutrophils % Not Reportable Not Reportable Nucleated RBC % 0.0 0.0 Platelet Estimate Decreased Decreased % Immature Plt Fraction 4.5 4.1 Polychromasia Occasional Hypochromasia 1+ 1+ Anisocytosis 1+ 1+ Target Cells Occasional Ovalocytes Occasional Sprague Cells Occasional Schistocytes None seen None seen Sodium 133 L Potassium 3.7 Chloride 106 Carbon Dioxide 25 Anion Gap 2 L BUN 12 Creatinine 0.85 Estim Creat Clear Calc 79 Estimated GFR > 60 Glucose 100 POC Capillary Glucose 114 H Calcium 7.8 L Magnesium 2.1 Total Bilirubin 0.8 AST 41 ALT 26 Alkaline Phosphatase 141 H Total Protein 5.2 L Albumin 2.5 L 07/20/25 11:33 WBC RBC Hgb Hct MCV MCH MCHC RDW Plt Count MPV Immature Gran % (Auto) Neut % (Auto) Lymph % (Auto) [place] % (Auto) Eos % (Auto) Baso % (Auto) Lymph # (Auto) [place] # (Auto) Eos # (Auto) Baso # (Auto) Abs Immat Gran (auto) Absolute Neuts (auto) Absolute Nucleated RBC Band Neutrophils % Nucleated RBC % Platelet Estimate % Immature Plt Fraction Polychromasia Hypochromasia Anisocytosis Target Cells Ovalocytes Chrissy Cells Schistocytes Sodium Potassium Chloride Carbon Dioxide Anion Gap BUN Creatinine Estim Creat Clear Calc Estimated GFR Glucose POC Capillary Glucose 139 H Calcium Magnesium Total Bilirubin AST ALT Alkaline Phosphatase Total Protein Albumin
== END 2025-07-20 12:30 | disposition home or self-care (01) | DRG 369 ==
LOC: ANHED 11:47 → ANH3MEDSUR 13:46
PROVIDERS: General Practice; Internal Medicine Gastroenterology; Admitting Provider Internal Medicine; Emergency Provider Emergency Medicine; Visit Provider Internal Medicine
PROC: 0DJ08ZZ Inspection of Upper Intestinal Tract, Via Natural or Artificial Opening Endoscopic (ICD-10-PCS; principal; 2025-07-17 14:45)
DX: K21.01 Gastro-esophageal reflux disease with esophagitis, with bleeding (principal); I85.00 Esophageal varices without bleeding; K76.6 Portal hypertension; D64.9 Anemia, unspecified; E83.119 Hemochromatosis, unspecified; F17.210 Nicotine dependence, cigarettes, uncomplicated; J44.9 Chronic obstructive pulmonary disease, unspecified; K22.81 Esophageal polyp; K74.60 Unspecified cirrhosis of liver; K44.9 Diaphragmatic hernia without obstruction or gangrene; K22.2 Esophageal obstruction; K21.00 Gastro-esophageal reflux disease with esophagitis, without bleeding
CPT/HCPCS: 36415; 36430; 76705; 80053; 81001; 82247; 82248; 82607; 82728; 82746; 82948; 83010; 83540; 83550; 83615; 83690; 83735; 84466; 85014; 85018; 85025; 85027; 85046; 85055; 85610; 86850; 86900; 86901; 86923; 93005; 96361; 96374; 96375; 96376; 99285; A9270; G0378; J0696; J2003; J2354; J2405; J2470; J2704; J7030; J7040; J7050; J7120; P9016

== ENCOUNTER 2025-07-28 07:55 | Outpatient (CLI) | payer MEDICARE, SELFPAY ==
--- OUTSIDE RECORDS SUMMARY | 2025-07-28 08:01 | XMS_ITS | Clinical Summary ---
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
[2025-07-28 08:15] LABS: Hematocrit 26.1 % (42.0-52.0); Hemoglobin 7.8 g/dL (14.0-18.0); Immature Granulocyte Percent A 0.4 % (0-0.5); Immature Platelet Fraction Pct 3.3 % (0.9-11.2); Lymphocytes Absolute Auto 0.62 K/mm3 (0.9-3.2); Mean Corpuscular HGB Conc 29.9 g/dl (32-36); Mean Corpuscular Hemoglobin 27.0 pg (26-34); Mean Corpuscular Volume 90.3 fl (80-100); Nucleated Red Blood Cells Absolute Auto 0.000 K/mm3 (0.0-0.012); Nucleated Red Blood Cells Perc 0.0 % (0.0-0.2); Platelet Count Result 83 k/mm3 (150-375); Red Blood Count 2.89 M/mm3 (4.6-6.20); White Blood Count 4.7 K/mm3 (4.5-10.0)
[2025-07-28 08:36] LABS: Alanine Aminotransferase 30 U/L (6-50); Albumin Level 3.0 g/dL (3.5-5.1); Alkaline Phosphatase 192 U/L (38-126); Anion Gap 2 mmol/L (4-12); Aspartate Amino Transferase 41 U/L (17-59); Bilirubin,Total 0.9 mg/dL (0.2-1.3); Blood Urea Nitrogen 13 mg/dL (9-20); Calcium 8.2 mg/dL (8.4-10.2); Carbon Dioxide 24 mmol/L (22-30); Chloride 109 mmol/L (98-107); Estimated Glomerular Filt Rate > 60; Glucose 119 mg/dL (65-110); Potassium 3.9 mmol/L (3.4-5.0); Sodium 135 mmol/L (137-145); Total Protein 6.0 g/dL (6.3-8.2)
[2025-07-28 08:42] LABS: Hypochromasia 1+
[2025-07-28 08:43] LABS: Ovalocytes 1+; Schistocytes Occasional
== END 2025-07-28 07:56 | disposition home or self-care (01) ==
PROVIDERS: Visit Provider Internal Medicine
DX: I85.00 Esophageal varices without bleeding (principal); K74.60 Unspecified cirrhosis of liver
CPT/HCPCS: 36415; 80053; 85025; 85055